=== PATIENT | female | born 1960 | race Caucasian/White ===

== ENCOUNTER 2020-12-15 17:32 | Emergency (ER) | payer OTHER, SELFPAY ==
[2020-12-15 17:43] VITALS: BP 152/74; PULSE 71; RESP 18; TEMP 36.7; O2SAT 96
--- NOTE | 2020-12-15 18:04 | ED.WOUNDLAC ---
HPI - Wound/Laceration General Chief Complaint: Wound/Laceration Stated Complaint: rt thumb cut Time Seen by Provider: 12/15/20 17:57 Source: patient Mode of arrival: Ambulatory Limitations: no limitations History of Present Illness HPI narrative: 60-year-old female nonsmoker with noncontributory medical history presents with a chief complaint of an accidental laceration to her right thumb just prior to arrival while using mechanical pruning cha. She has full range of motion and denies any numbness, tingling or weakness. Her tetanus is up-to-date and she denies any other injury or complaint Onset (ago): minute(s) Place: outdoors Patient tetanus UTD: Yes Context: accidental Associated symptoms: pain Treatments prior to arrival: bandage Related Data Home Medications Medication Instructions Recorded Confirmed IBUPROFEN (Motrin / Advil) 600 mg PO PRN #0 07/10/06 Previous Rx's Medication Instructions Recorded cephalexin 500 mg PO Q6H 7 Days #28 cap 12/15/20 Allergies Allergy/AdvReac Type Severity Reaction Status Date / Time ibuprofen Allergy Verified 12/15/20 17:46 Review of Systems Constitutional Constitutional: Denies chills, Denies fatigue, Denies fever(s), Denies frequent falls, Denies lethargy and Denies weakness Eyes Eyes: Denies change in vision, Denies eye discharge, Denies irritation and Denies loss of vision ENT Ears, Nose, Mouth, and Throat: Denies change in voice, Denies dizziness, Denies neck pain, Denies sore throat and Denies throat swelling Cardiovascular Cardiovascular: Denies chest pain, Denies irregular heart rhythm, Denies lightheadedness, Denies palpitations, Denies dyspnea, Denies dyspnea on exertion and Denies orthopnea Respiratory Respiratory: Denies cough, Denies dyspnea, Denies dyspnea on exertion and Denies wheezing Gastrointestinal Gastrointestinal: Denies abdominal pain, Denies change in bowel habits, Denies diarrhea, Denies nausea and Denies vomiting Musculoskeletal Musculoskeletal: Denies neck pain and Denies numbness Integumentary/Breasts Skin/Breast: Denies pruritus, Denies erythema, Denies rash and Reports wounds Neurologic Neurologic: Denies behavioral changes, Denies confusion, Denies dizziness, Denies frequent falls, Denies loss of vision, Denies numbness and Denies weakness Psychiatric Psychiatric: Denies anxiety, Denies behavioral changes, Denies confusion, Denies depression, Denies homicidal ideation and Denies suicidal ideation Endocrine Endocrine: Denies fatigue, Denies flushing and Denies palpitations Hematologic/Lymphatic Hematologic/Lymphatic: Denies easy bruising Allergic/Immunologic Allergic/Immunologic: Denies urticaria, Denies throat swelling and Denies wheezing Patient History Social History Smoking Status: Current some day smoker Smoking Status: Current some day smoker alcohol intake frequency: 3 or more drinks per day Substance Use Type: marijuana Exam Narrative Exam Narrative: GEN: AOx3 and in mild distress EYES: Pupils are equal, round, and reactive to light and accommodation. Extraoccular muscles are intact bilaterally. There is no subconjunctival hemorrhage or exudate. CHEST: Lungs are clear to auscultation bilaterally and free of wheezes, rales, or rhonchi. Heart rate is regular rhythm, there are no murmurs, clicks, rubs, or gallops. There is no chest wall tenderness. ABD: Abdomen is soft and nontender. There is no guarding or rebound. Bowel sounds are normal in all 4 quadrants. There is no mass or organomegaly. EXT: 1 cm laceration on the dorsal surface of right thumb with minimal active bleeding, there is some particulate removed with cleaning. It is visualized in a bloodless field and no tendon involvement is noted Full painless ROM of all extremities with no loss of sensation or strength. SKIN: Warm, pink, and dry. No erythema or rash Initial Vital Signs Initial Vital Signs: Vital Signs Temperature 98.0 F 12/15/20 17:43 Pulse Rate 71 12/15/20 17:43 Respiratory Rate 18 12/15/20 17:43 Blood Pressure 152/74 H 12/15/20 17:43 Pulse Oximetry 96 12/15/20 17:43 Procedures Laceration Repair Laceration 1: Site: hand Side (If applicable): right Size (cm): 1 Description: linear Depth: simple, single layer Local Anesthetic: lidocaine 1% and with bicarb Amount of anesthesia used (mL): 4 Pre-repair: wound explored, irrigated extensively and deep structures intact Skin layer closed with: nylon Size (cm): 5-0 Number of sutures: 3 Technique: simple, interrupted Course Orders Ordered: Discontinued Medications Lidocaine/Sodium Bicarbonate (Lido 1%/Sod Bicarb 8.4% (10ml) 10 Ml Syringe) 10 ml INJ NOW ONE Stop: 12/15/20 21:16 Last Admin: 12/15/20 21:24 Dose: 10 ml Documented by: VELVET Vital Signs Vital signs: Vital Signs - 8 hr 12/15/20 17:43 Temperature 98.0 F Pulse Rate 71 Respiratory Rate 18 Blood Pressure 152/74 H Pulse Oximetry 96 Discharge Plan Departure Patient Disposition: Home Clinical Impression: Laceration Instructions: DI for Laceration Repair Activity Restrictions/Additional Instructions: Please keep the wound clean and dry to the best of your ability. Please monitor for signs of infection such as redness to the skin or increasing pain. Have the sutures removed by your doctor in about 7 days. If you are unable to get into your doctor, we would be happy to remove the sutures in that same timeframe. Prescriptions: New cephalexin 500 mg capsule 500 mg PO Q6H 7 Days Qty: 28 RF: 0 No Action IBUPROFEN (Motrin / Advil) 600 mg PO PRN Qty: 0 RF: 0 Referrals: Kylie Koo ND [Primary Care Provider] -
[2020-12-15] MEDS: LIDO 1%/SOD BICARB 8.4% (10ML) 10 ML SYRINGE INJ (21:24)
== END 2020-12-15 21:40 | disposition home or self-care (01) ==
PROVIDERS: Emergency Provider Emergency Medicine; PCP Naturopath
DX: S61.011A Laceration without foreign body of right thumb without damage to nail, initial encounter (principal); W26.8XXA Contact with other sharp object(s), not elsewhere classified, initial encounter
CPT/HCPCS: 12001; 99283

== ENCOUNTER → 2020-12-17 10:46 | Outpatient (CLI) | payer OTHER, SELFPAY ==
[2020-12-17] MEDS: COVID-19 VACC #1, MRNA(MOD) 100 MCG/0.5 ML VIAL IM (10:52)
== END ==
PROVIDERS: PCP Naturopath; Visit Provider Internal Medicine
DX: Z23 Encounter for immunization (principal)
CPT/HCPCS: 0011A; 91301

== ENCOUNTER 2020-12-24 14:14 | Emergency (ER) | payer OTHER, SELFPAY ==
[2020-12-24 14:18] VITALS: BP 158/77; PULSE 79; RESP 14; O2SAT 95; BMI 29.9
--- NOTE | 2020-12-24 14:21 | ED.EXTPRO ---
HPI - Extremity Problem General Chief complaint: Recheck/Abnormal Lab/Rx Stated complaint: stitches removal Time Seen by Provider: 12/24/20 14:19 Source: patient Mode of arrival: Ambulatory Limitations: no limitations History of Present Illness HPI Narrative: The patient was seen here about 10 days ago for a right thumb laceration. She lacerated her finger while gardening. She is right-hand dominant. There is no drainage or infection around the site. She has normal range of motion of the right thumb. She has no complaints. Related Data Home Medications Medication Instructions Recorded Confirmed IBUPROFEN (Motrin / Advil) 600 mg PO PRN #0 07/10/06 Allergies Allergy/AdvReac Type Severity Reaction Status Date / Time ibuprofen Allergy Verified 12/24/20 14:17 Review of Systems Constitutional Constitutional: Denies fever(s) Comments: Feeling well. Musculoskeletal Comments: Recent right thumb injury. Integumentary/Breasts Comments: Healing right thumb wound. Neurologic Comments: No motor sensory deficit in the right hand. Patient History Medical History (Updated 12/24/20 @ 14:24 by Diego Ramirez MD) No significant past medical history Social History Smoking Status: Current some day smoker Smoking Status: Current some day smoker alcohol intake frequency: 3 or more drinks per day Substance Use Type: marijuana Exam Initial Vital Signs Initial Vital Signs: Vital Signs Pulse Rate 79 12/24/20 14:18 Respiratory Rate 14 12/24/20 14:18 Blood Pressure 158/77 H 12/24/20 14:18 Pulse Oximetry 95 12/24/20 14:18 Const General: cooperative, well developed, well groomed and No acute distress Skin Other: Well-healed right thumb laceration. Therefore nylon sutures in place. There is no evidence of infection. Neuro General: patient alert and patient oriented x3 Other: Motor and sensory exam of the right hand are normal. Extrem General: full ROM, no clubbing, cyanosis or edema, no pedal edema and no calf tenderness Other: Normal range of motion in the right digits. Course Course Course Narrative: The sutures removed from the right thumb by 1 of the ER nurses. A bacitracin bandage was placed. Vital Signs Vital signs: Vital Signs - 8 hr 12/24/20 14:18 Pulse Rate 79 Respiratory Rate 14 Blood Pressure 158/77 H Pulse Oximetry 95 Discharge Plan Departure Patient Disposition: Home Clinical Impression: Encounter for removal of sutures Activity Restrictions/Additional Instructions: You may take the bandages off tonight. You have no limitations. Return here as needed. (the patient was given verbal discharge instructions.) Prescriptions: No Action IBUPROFEN (Motrin / Advil) 600 mg PO PRN Qty: 0 RF: 0 Referrals: Kylie Koo ND [Primary Care Provider] -
== END 2020-12-24 14:27 | disposition home or self-care (01) ==
PROVIDERS: Emergency Provider Emergency Medicine; PCP Naturopath
DX: Z48.02 Encounter for removal of sutures (principal)
CPT/HCPCS: 99281

== ENCOUNTER → 2021-01-14 10:23 | Outpatient (CLI) | payer OTHER, SELFPAY ==
[2021-01-14] MEDS: COVID-19 VACC #2, MRNA(MOD) 100 MCG/0.5 ML VIAL IM (10:30)
== END ==
PROVIDERS: PCP Naturopath; Visit Provider Internal Medicine
DX: Z23 Encounter for immunization (principal)
CPT/HCPCS: 0012A; 91301

== ENCOUNTER → 2021-05-17 13:26 | Outpatient (CLI) | payer OTHER, SELFPAY ==
[2021-05-17 14:03] LABS: Add Manual Diff / Slide Review NO; Basophils Absolute Auto 100 /uL (0-100); Basophils Percent Auto 0.5 % (0-2); Eosinophils Absolute Auto 0 /uL (0-450); Hematocrit 36.1 % (36-46); Hemoglobin 12.2 g/dL (12.0-16.0); Lymphocytes Absolute Auto 1200 /uL (1100-4500); Lymphocytes Percent Auto 6.8 % (25-40); Mean Corpuscular HGB Conc 33.9 % (30-36); Mean Corpuscular Hemoglobin 39.8 PG (26-34); Mean Corpuscular Volume 117.4 fL (80-100); Monocytes Absolute Auto 1700 /uL (0-900); Neutrophils Absolute Auto 14300 /uL (1500-7000); Neutrophils Percent Auto 82.7 % (50-75); Platelet Count 211 X10^3/uL (150-400); Red Blood Cell Count 3.08 X10^6/uL (4.0-5.2); White Blood Cell Count 17.3 X10^3/uL (4.5-11.0)
[2021-05-17 14:11] LABS: Alanine Aminotransferase 33 IU/L (<35); Albumin 3.5 g/dL (3.5-5.0); Albumin Globulin Ratio 0.9 (1.0-2.8); Alkaline Phosphatase 243 U/L (38-126); Amylase 40 U/L (30-110); Aspartate Aminotransferase 244 IU/L (14-36); BUN Creatinine Ratio 16.9 (6-22); Bilirubin Total 10.4 mg/dL (0.2-1.3); Blood Urea Nitrogen 12 mg/dL (7-17); Calcium 8.6 mg/dL (8.4-10.2); Carbon Dioxide 27 mmol/L (22-32); Chloride 97 mmol/L (98-107); Estimated Glomerular Filt Rate > 60.0 mL/min (>60); Glucose 84 mg/dL (80-110); HEMOLYSIS < 15 (0-50); Lipase 12 U/L (23-300); Potassium 4.6 mmol/L (3.4-5.1); Sodium 132 mmol/L (137-145); Total Protein 7.5 g/dL (6.3-8.2)
[2021-05-17 14:23] LABS: Macrocytosis 3+
== END ==
PROVIDERS: PCP Internal Medicine; Referring Provider Physician Assistant; Visit Provider Physician Assistant
DX: R10.9 Unspecified abdominal pain (principal)
CPT/HCPCS: 36415; 80053; 82150; 83690; 85025

== ENCOUNTER 2021-05-17 15:55 | Inpatient (IN) | payer OTHER, SELFPAY ==
[2021-05-17] VITALS (14 sets, daily range): BP systolic 95–113; BP diastolic 52–58; PULSE 86–93; RESP 16; TEMP 37.2; O2SAT 91–98; BMI 28.3
[2021-05-17 16:53] LABS: Add Manual Diff / Slide Review NO; Basophils Absolute Auto 100 /uL (0-100); Basophils Percent Auto 0.5 % (0-2); Eosinophils Absolute Auto 0 /uL (0-450); Eosinophils Percent Auto 0.1 % (2-4); Hematocrit 35.9 % (36-46); Hemoglobin 12.2 g/dL (12.0-16.0); Lymphocytes Absolute Auto 1400 /uL (1100-4500); Lymphocytes Percent Auto 8.2 % (25-40); Mean Corpuscular HGB Conc 34.1 % (30-36); Mean Corpuscular Hemoglobin 39.9 PG (26-34); Mean Corpuscular Volume 117.1 fL (80-100); Monocytes Absolute Auto 1700 /uL (0-900); Monocytes Percent Auto 9.8 % (3-14); Neutrophils Absolute Auto 14000 /uL (1500-7000); Neutrophils Percent Auto 81.4 % (50-75); Platelet Count 223 X10^3/uL (150-400); Red Blood Cell Count 3.07 X10^6/uL (4.0-5.2); Red Cell Distribution Width 15.1 % (11.6-14.8); White Blood Cell Count 17.1 X10^3/uL (4.5-11.0)
[2021-05-17 17:06] LABS: Alanine Aminotransferase 33 IU/L (<35); Albumin 3.6 g/dL (3.5-5.0); Albumin Globulin Ratio 0.9 (1.0-2.8); Alkaline Phosphatase 248 U/L (38-126); Aspartate Aminotransferase 240 IU/L (14-36); BUN Creatinine Ratio 17.6 (6-22); Blood Urea Nitrogen 13 mg/dL (7-17); Calcium 8.5 mg/dL (8.4-10.2); Carbon Dioxide 26 mmol/L (22-32); Chloride 95 mmol/L (98-107); Estimated Glomerular Filt Rate > 60.0 mL/min (>60); Glucose 83 mg/dL (80-110); HEMOLYSIS < 15 (0-50); Lipase 14 U/L (23-300); Potassium 4.1 mmol/L (3.4-5.1); Sodium 132 mmol/L (137-145); Total Protein 7.6 g/dL (6.3-8.2)
--- NOTE | 2021-05-17 17:26 | DI.US.S_ITS ---
PROCEDURE: US ABDOMEN LIMITED INDICATIONS: RUQ, DIFFUSE PAIN TECHNIQUE: Real-time focused scanning was performed of the abdomen, with image documentation. Color and pulse Doppler interrogation was also performed on the area of interest. COMPARISON: None. FINDINGS: Dense coarse hepatic echotexture significantly limits assessment. Overall size is within normal limits without focal mass lesion visualized. The portal vein shows appropriate vascularity. Gallbladder shows wall thickening measuring up to 7 mm with pericholecystic fluid. No shadowing calculi. Intrahepatic and common bile ducts are not well visualized. Common bile duct possibly measures 3.1 mm. Nonvisualized pancreas IMPRESSION: 1. Limited exam. 2. Dense echogenic liver either reflects advanced hepatic fatty infiltration or cirrhosis. 3. Gallbladder wall thickening, pericholecystic fluid without cholelithiasis. Differential possibilities include acalculous cholecystitis, hepatitis, hypoalbuminemia, ascites. Consider follow-up diagnostic imaging such as contrast CT or HIDA scan. Approved by: Jacky Srivastava M.D. on 05/17/2021 at 17:40
[2021-05-17] MEDS: ONDANSETRON 4 MG/2 ML INJ IV ×2 (17:37→23:53)
[2021-05-17] MEDS: SODIUM CHLORIDE 0.9% 1,000 ML 1000 ML IV ×2 (17:37→22:52)
[2021-05-17] MEDS: MORPHINE 2 MG/ML INJ 4 MG IV (17:37)
[2021-05-17 17:39] LABS: Macrocytosis 2+
[2021-05-17 17:41] LABS: Ictotest Urine Positive (Negative); RBC Urine 1-5/HPF (0-5/HPF); Squamous Epithelial Cell Urine 1-5 /HPF (0-5/HPF); WBC Urine 5-10/HPF (0-5/HPF)
[2021-05-17 17:42] LABS: Amorphous Sediment Urine 2+; Bacteria Urine Many (>30)
--- NOTE | 2021-05-17 18:17 | DI.MRI.S_ITS ---
PROCEDURE: MR ABDOMEN WO CON INDICATIONS: CBD stone, choledocholithiasis TECHNIQUE: Coronal HASTE through the abdomen, axial 2-D FLASH in- and [id number], and breath-hold T2 FSE with fat saturation through the biliary system and pancreas. Oblique coronal and axial thin-slice HASTE, radial thick-slab HASTE centered on the extrahepatic bile ducts. Intravenous secretin: Not requested. COMPARISON: [facility], , US ABDOMEN LIMITED, 05/17/2021, 16:53. FINDINGS: Image quality: Excellent. Pancreas and biliary system: Intrahepatic and extrahepatic biliary ducts are normal in caliber. Normal T2 fluid signal in the common hepatic duct, cystic duct, and common bile duct, with no intraluminal filling defect to indicate choledocholithiasis. There is a small gallstone within the gallbladder near the anterior free edge (series 6, image 12), measuring 3 millimeters. No gallbladder wall thickening. Small volume pericholecystic fluid is likely related to suspected liver disease. No pancreatic ductal dilatation. No peripancreatic fat stranding or pathologic peripancreatic fluid. Other solid organs: Severe hepatic steatosis. Heterogeneous hepatic signal intensity with small volume perihepatic and perisplenic ascites. Splenomegaly noted. No findings of hydronephrosis. Adrenal glands within normal limits. Nodes and vessels: Nonaneurysmal abdominal aorta. IVC grossly unremarkable. Bowel and peritoneum: No findings of bowel obstruction. Lung bases: Partially visualized pleural effusions, size unknown. Bone marrow: Normal marrow signal intensity. IMPRESSION: No findings of choledocholithiasis or biliary ductal dilatation. Tiny gallstone with no findings of cholecystitis. Severe hepatic steatosis with suspected diffuse hepatocellular disease. Cirrhosis is not excluded. There is splenomegaly along with perihepatic and perisplenic ascites, along with small pleural effusions. Dictated by: Zeeshan Watkins M.D. on 05/17/2021 at 18:55 Approved by: Zeeshan Watkins M.D. on 05/17/2021 at 19:01
--- NOTE | 2021-05-17 19:20 | ED_ITS ---
HPI - Abdominal Pain <Corinne Metcalf PA-C - Last Filed: 05/17/21 20:46> General Chief Complaint: Abdominal Pain Stated Complaint: ABD PAIN Time Seen by Provider: 05/17/21 15:57 Source: patient and family Mode of arrival: Family Vehicle Limitations: no limitations History of Present Illness HPI narrative: 60-year-old female no reported past medical history presents to the ED with 2 days of diffuse abdominal pain. Patient's symptoms started yesterday and has abdominal pain that woke her from her sleep, along with nausea. Patient endorses a subjective fever, chills. Patient denies chest p ain, shortness of breath, vomiting, dysuria, hematochezia, melena, lightheadedness, syncope, dizziness. Patient endorses hematuria. Patient endorses moderate to heavy daily alcohol use for several years. Denies having been diagnosed with cirrhosis, states she has not been to a doctor in a long ti me. Denies history of gallstones. Related Data Home Medications Medication Instructions Recorded Confirmed No Known Home Medications 05/17/21 05/17/21 Allergies Allergy/AdvReac Type Severity Reaction Status Date / Time ibuprofen Allergy Verified 05/17/21 21:33 acetaminophen [From Percocet] AdvReac Verified 05/17/21 21:33 oxycodone [From Percocet] AdvReac Verified 05/17/21 21:33 Review of Systems <Corinne Metcalf PA-C - Last Filed: 05/17/21 20:46> Constitutional Constitutional: Reports chills, Denies fatigue, Reports fever(s), Denies frequent falls, Denies lethargy and Denies weakness Eyes Eyes: Denies change in vision, Denies eye discharge, Denies irritation and Denies loss of vision ENT Ears, Nose, Mouth, and Throat: Denies change in voice, Denies dizziness, Denies neck pain, Denies sore throat and Denies throat swelling Cardiovascular Cardiovascular: Denies chest pain, Denies irregular heart rhythm, Denies lightheadedness, Denies palpitations, Denies dyspnea, Denies dyspnea on exertion and Denies orthopnea Respiratory Respiratory: Denies cough, Denies dyspnea, Denies dyspnea on exertion and Denies wheezing Gastrointestinal Gastrointestinal: Reports as per HPI, Reports abdominal pain, Denies change in bowel habits, Denies diarrhea, Reports nausea and Denies vomiting Musculoskeletal Musculoskeletal: Denies neck pain and Denies numbness Integumentary/Breasts Skin/Breast: Denies pruritus, Denies erythema, Denies rash and Denies wounds Neurologic Neurologic: Denies behavioral changes, Denies confusion, Denies dizziness, Denies frequent falls, Denies loss of vision, Denies numbness and Denies weakness Psychiatric Psychiatric: Denies anxiety, Denies behavioral changes, Denies confusion, Denies depression, Denies homicidal ideation and Denies suicidal ideation Endocrine Endocrine: Denies fatigue, Denies flushing and Denies palpitations Hematologic/Lymphatic Hematologic/Lymphatic: Denies easy bruising Allergic/Immunologic Allergic/Immunologic: Denies urticaria, Denies throat swelling and Denies wheezing Patient History <Corinne Metcalf PA-C - Last Filed: 05/17/21 20:46> Medical History No significant past medical history Social History Smoking Status: Current some day smoker Smoking Status: Current some day smoker alcohol intake frequency: 3 or more drinks per day Substance Use Type: marijuana Exam <Corinne Metcalf PA-C - Last Filed: 05/17/21 20:46> Initial Vital Signs Initial Vital Signs: Vital Signs Temperature 99 F 05/17/21 16:59 Pulse Rate 90 05/17/21 16:59 Respiratory Rate 16 05/17/21 16:59 Blood Pressure 103/56 L 05/17/21 16:59 Pulse Oximetry 98 05/17/21 16:59 Const General: cooperative HENMT Head: normocephalic and atraumatic Ears: external ears normal and TM's normal bilaterally Nose: external nose normal and No nasal discharge Face and sinus: sinuses nontender, face symmetric, no sinus tenderness and No dry mucous membranes Mouth: oral mucosae normal and moist mucous membranes Teeth and gingiva: dentition normal Throat: tonsils normal and uvula midline Eyes General: appearance normal, both eyes and all related structures Eyelids: eyelids normal Conjunctivae: conjunctivae normal Sclera: sclerae normal Pupils: PERRL EOM: EOM intact bilaterally Neck Neck: normal visual inspection, trachea midline, No lymphadenopathy, No midline deformity and No JVD Lymphatic: No lymphedema Chest Chest: normal inspection of the chest Resp Effort & Inspection: normal respiratory effort, able to speak in complete sentences, no respiratory distress and no use of accessory muscles Auscultation: clear to auscultation bilaterally, no rales, no rhonchi and no wheezes Cardio Rate: regular rate Rhythm: regular rhythm Heart Sounds: no click, no gallops, no murmurs and no rubs Pulses: normal peripheral pulses GI Inspection: distended Palpation: soft, No guarding, No pulsatile mass and No tender Auscultation: normal bowel sounds Other: Abdomen tender to palpation in the epigastric and right upper quadrant regions. No CVA tenderness. No rebound, guarding. Mildly distended, soft abdomen General: No CVA tenderness Back/Spine/Pelvis Back: No CVA tenderness Cervical Spine: cervical ROM normal and No pain with cervical ROM Thoracic/Lumbar Spine: thoracic and lumbar spine normal to inspection Skin General: no rashes or lesions noted, No jaundice and No petechiae Neuro General: patient alert, patient oriented x3, gait normal and no focal motor deficits Speech: speech normal Extrem General: full ROM, no clubbing, cyanosis or edema, no pedal edema and no calf tenderness Psych Appearance: well kempt Mental Status: mental status grossly normal Attitude: cooperative Thought Content: normal and suicidality Judgment: judgment good <Safia Cervantes MD - Last Filed: 05/18/21 03:24> Initial Vital Signs Initial Vital Signs: Vital Signs Temperature 99 F 05/17/21 16:59 Pulse Rate 90 05/17/21 16:59 Respiratory Rate 16 05/17/21 16:59 Blood Pressure 103/56 L 05/17/21 16:59 Pulse Oximetry 98 05/17/21 16:59 Course <Corinne Metcalf PA-C - Last Filed: 05/17/21 20:46> Course Course Narrative: Patient's symptoms improved with morphine, Zofran, IV fluids. Ultrasound negative for choledocholithiasis. MRCP negative for choledocholithiasis, pancreatic cancer, cholecystitis. Will order CT AP. Likely admit for observation for serial abdominal exams. Orders Ordered: ED Orders 05/17/21 19:32 CT abdomen pelvis w con Stat 05/17/21 20:15 COVID19 - ADMIT ([facility] [employer] swab/PCR) Stat 05/17/21 21:15 Blood Culture Stat Enoxaparin Sodium (Enoxaparin 40 Mg/0.4 Ml Syringe) 40 mg SUBCUT DAILY PETER Hydromorphone HCl (Hydromorphone 0.5 Mg Inj) 0.5 mg IV Q15MIN PRN PRN Reason: Pain, Last Admin: 05/17/21 23:53 Dose: 0.5 mg Documented by: HANG Sodium Chloride (Normal Saline 0.9%) 1,000 mls @ 150 mls/hr IV CONT PETER Last Admin: 05/18/21 00:10 Dose: 150 mls/hr Documented by: HANG Piperacillin Sod/Tazobactam (Sod 3.375 gm/ Sodium Chloride) 100 mls @ 25 mls/hr IV Q8H [facility] Naloxone HCl (Naloxone 0.4 Mg/Ml Vial) 0.2 mg IV Q2MIN PRN PRN Reason: Opiate Reversal Ondansetron HCl (Ondansetron 4 Mg/2 Ml Inj) 4 mg IV Q8HR PRN PRN Reason: Nausea And Vomiting Discontinued Medications Sodium Chloride (Normal Saline 0.9%) 1,000 mls @ 1,000 mls/hr IV BOLUS ONE Stop: 05/17/21 18:26 Last Infusion: 05/17/21 20:31 Dose: 0 mls/hr Documented by: Admin: 05/17/21 17:37 Dose: 1,000 mls/hr Documented by: MAURI Sodium Chloride (Normal Saline 0.9%) 1,000 mls @ 2,000 mls/hr IV BOLUS ONE Stop: 05/17/21 21:27 Last Infusion: 05/17/21 22:51 Dose: 0 mls/hr Documented by: Infusion: 05/17/21 22:12 Dose: 1,000 mls/hr Documented by: Infusion: 05/17/21 21:32 Dose: 300 mls/hr Documented by: Admin: 05/17/21 21:32 Dose: 2,000 mls/hr Documented by: HANG Piperacillin Sod/Tazobactam (Sod 4.5 gm/ Sodium Chloride) 100 mls @ 200 mls/hr IV NOW ONE Stop: 05/17/21 20:59 Last Infusion: 05/17/21 22:12 Dose: 0 mls/hr Documented by: Admin: 05/17/21 21:31 Dose: 200 mls/hr Documented by: HANG Sodium Chloride (Normal Saline 0.9%) 1,000 mls @ 1,000 mls/hr IV BOLUS ONE Stop: 05/17/21 22:43 Last Infusion: 05/18/21 00:09 Dose: 0 mls/hr Documented by: Admin: 05/17/21 22:52 Dose: 1,000 mls/hr Documented by: HANG Morphine Sulfate (Morphine 2 Mg/Ml Inj) 4 mg IV NOW ONE Stop: 05/17/21 17:28 Last Admin: 05/17/21 17:37 Dose: 4 mg Documented by: MAURI Ondansetron HCl (Ondansetron 4 Mg/2 Ml Inj) 4 mg IV NOW ONE Stop: 05/17/21 17:28 Last Admin: 05/17/21 17:37 Dose: 4 mg Documented by: MAURI Ondansetron HCl (Ondansetron 4 Mg/2 Ml Inj) 4 mg IV NOW ONE Stop: 05/17/21 23:44 Last Admin: 05/17/21 23:53 Dose: 4 mg Documented by: HANG Vital Signs Vital signs: Vital Signs - 8 hr 05/17/21 19:30 05/17/21 20:11 05/17/21 20:12 Pulse Rate 86 88 Blood Pressure 98/57 L 109/58 L Pulse Oximetry 93 94 94 05/17/21 20:30 05/17/21 21:00 Pulse Rate 88 86 Blood Pressure 105/54 L 104/56 L Pulse Oximetry 91 92 <Safia Cervantes MD - Last Filed: 05/18/21 03:24> Orders Ordered: ED Orders 05/17/21 19:32 CT abdomen pelvis w con Stat 05/17/21 20:15 COVID19 - ADMIT ([employer] swab/PCR) Stat 05/17/21 21:15 Blood Culture Stat Enoxaparin Sodium (Enoxaparin 40 Mg/0.4 Ml Syringe) 40 mg SUBCUT DAILY PETER Hydromorphone HCl (Hydromorphone 0.5 Mg Inj) 0.5 mg IV Q15MIN PRN PRN Reason: Pain, Last Admin: 05/17/21 23:53 Dose: 0.5 mg Documented by: HANG Sodium Chloride (Normal Saline 0.9%) 1,000 mls @ 150 mls/hr IV CONT PETER Last Admin: 05/18/21 00:10 Dose: 150 mls/hr Documented by: HANG Piperacillin Sod/Tazobactam (Sod 3.375 gm/ Sodium Chloride) 100 mls @ 25 mls/hr IV Q8H PETER Naloxone HCl (Naloxone 0.4 Mg/Ml Vial) 0.2 mg IV Q2MIN PRN PRN Reason: Opiate Reversal Ondansetron HCl (Ondansetron 4 Mg/2 Ml Inj) 4 mg IV Q8HR PRN PRN Reason: Nausea And Vomiting Discontinued Medications Sodium Chloride (Normal Saline 0.9%) 1,000 mls @ 1,000 mls/hr IV BOLUS ONE Stop: 05/17/21 18:26 Last Infusion: 05/17/21 20:31 Dose: 0 mls/hr Documented by: Admin: 05/17/21 17:37 Dose: 1,000 mls/hr Documented by: MAURI Sodium Chloride (Normal Saline 0.9%) 1,000 mls @ 2,000 mls/hr IV BOLUS ONE Stop: 05/17/21 21:27 Last Infusion: 05/17/21 22:51 Dose: 0 mls/hr Documented by: Infusion: 05/17/21 22:12 Dose: 1,000 mls/hr Documented by: Infusion: 05/17/21 21:32 Dose: 300 mls/hr Documented by: Admin: 05/17/21 21:32 Dose: 2,000 mls/hr Documented by: HANG Piperacillin Sod/Tazobactam (Sod 4.5 gm/ Sodium Chloride) 100 mls @ 200 mls/hr IV NOW ONE Stop: 05/17/21 20:59 Last Infusion: 05/17/21 22:12 Dose: 0 mls/hr Documented by: Admin: 05/17/21 21:31 Dose: 200 mls/hr Documented by: HANG Sodium Chloride (Normal Saline 0.9%) 1,000 mls @ 1,000 mls/hr IV BOLUS ONE Stop: 05/17/21 22:43 Last Infusion: 05/18/21 00:09 Dose: 0 mls/hr Documented by: Admin: 05/17/21 22:52 Dose: 1,000 mls/hr Documented by: HANG Morphine Sulfate (Morphine 2 Mg/Ml Inj) 4 mg IV NOW ONE Stop: 05/17/21 17:28 Last Admin: 05/17/21 17:37 Dose: 4 mg Documented by: MAURI Ondansetron HCl (Ondansetron 4 Mg/2 Ml Inj) 4 mg IV NOW ONE Stop: 05/17/21 17:28 Last Admin: 05/17/21 17:37 Dose: 4 mg Documented by: MAURI Ondansetron HCl (Ondansetron 4 Mg/2 Ml Inj) 4 mg IV NOW ONE Stop: 05/17/21 23:44 Last Admin: 05/17/21 23:53 Dose: 4 mg Documented by: HANG Vital Signs Vital signs: Vital Signs - 8 hr 05/17/21 19:30 05/17/21 20:11 05/17/21 20:12 Pulse Rate 86 88 Blood Pressure 98/57 L 109/58 L Pulse Oximetry 93 94 94 05/17/21 20:30 05/17/21 21:00 Pulse Rate 88 86 Blood Pressure 105/54 L 104/56 L Pulse Oximetry 91 92 MDM - Abdominal Pain <Corinne Metcalf PA-C - Last Filed: 05/17/21 20:46> Medical Records Attestation: I reviewed the patient's medical records. Lab Data Attestation: I reviewed the patient's lab results. Lab results narrative: Labs show cholestatic pattern with elevated bilirubin, elevated AST, elevated alkaline phosphatase. WBCs elevated to 17. Result diagrams: 05/17/21 16:41 05/17/21 16:41 Labs: Lab Results 05/17/21 05/17/21 05/17/21 Range/Units 16:30 16:30 16:41 WBC 17.1 H (4.5-11.0) X10^3/uL RBC 3.07 L (4.0-5.2) X10^6/uL Hgb 12.2 (12.0-16.0) g/dL Hct 35.9 L (36-46) % MCV 117.1 H (80-100) fL MCH 39.9 H (26-34) PG MCHC 34.1 (30-36) % RDW 15.1 H (11.6-14.8) % Plt Count 223 (150-400) X10^3/uL Neut % (Auto) 81.4 H (50-75) % Lymph % (Auto) 8.2 L (25-40) % Vigo % (Auto) 9.8 (3-14) % Eos % (Auto) 0.1 L (2-4) % Baso % (Auto) 0.5 (0-2) % Neut # (Auto) 36296 H (6017-9553) /uL Lymph # (Auto) 1400 (5772-4760) /uL Vigo # (Auto) 1700 H (0-900) /uL Eos # (Auto) 0 (0-450) /uL Baso # (Auto) 100 (0-100) /uL RBC Morphology See below Macrocytosis 2+ H PT (10.1-12.7) SECONDS INR (0.9-1.3) APTT (26.4-36.2) SECONDS Sodium (137-145) mmol/L Potassium (3.4-5.1) mmol/L Chloride (98-107) mmol/L Carbon Dioxide (22-32) mmol/L BUN (7-17) mg/dL Creatinine (0.52-1.04) mg/dL Estimated GFR (>60) mL/min BUN/Creatinine Ratio (6-22) Glucose (80-110) mg/dL Lactate (0.7-2.1) mmol/L Calcium (8.4-10.2) mg/dL Magnesium (1.6-2.3) mg/dL Total Bilirubin (0.2-1.3) mg/dL GGT (12-43) U/L AST (14-36) IU/L ALT (<35) IU/L Alkaline Phosphatase (38-126) U/L Total Protein (6.3-8.2) g/dL Albumin (3.5-5.0) g/dL Globulin (1.7-4.1) g/dL Albumin/Globulin Ratio (1.0-2.8) Lipase (23-300) U/L Procalcitonin (<0.5) ng/mL Ur Bilirubin Confirm Positive H (Negative) Urine RBC 1-5/hpf (0-5/HPF) Urine WBC 5-10/hpf H (0-5/HPF) Ur Squamous Epith Cells 1-5 /hpf (0-5/HPF) Amorphous Sediment 2+ Urine Bacteria Many (>30) H (None) Ur Culture Indicated? Culture not indicate Acetaminophen (10-30) ug/mL SARS-CoV-2 (PCR) (Negative) 05/17/21 05/17/21 05/17/21 Range/Units 16:41 16:41 16:41 WBC (4.5-11.0) X10^3/uL RBC (4.0-5.2) X10^6/uL Hgb (12.0-16.0) g/dL Hct (36-46) % MCV (80-100) fL MCH (26-34) PG MCHC (30-36) % RDW (11.6-14.8) % Plt Count (150-400) X10^3/uL Neut % (Auto) (50-75) % Lymph % (Auto) (25-40) % Vigo % (Auto) (3-14) % Eos % (Auto) (2-4) % Baso % (Auto) (0-2) % Neut # (Auto) (2179-3481) /uL Lymph # (Auto) (0371-4936) /uL Vigo # (Auto) (0-900) /uL Eos # (Auto) (0-450) /uL Baso # (Auto) (0-100) /uL RBC Morphology Macrocytosis PT (10.1-12.7) SECONDS INR (0.9-1.3) APTT (26.4-36.2) SECONDS Sodium 132 L (137-145) mmol/L Potassium 4.1 (3.4-5.1) mmol/L Chloride 95 L (98-107) mmol/L Carbon Dioxide 26 (22-32) mmol/L BUN 13 (7-17) mg/dL Creatinine 0.74 (0.52-1.04) mg/dL Estimated GFR > 60.0 (>60) mL/min BUN/Creatinine Ratio 17.6 (6-22) Glucose 83 (80-110) mg/dL Lactate 4.2 H* (0.7-2.1) mmol/L Calcium 8.5 (8.4-10.2) mg/dL Magnesium (1.6-2.3) mg/dL Total Bilirubin 11.0 H (0.2-1.3) mg/dL GGT (12-43) U/L AST 240 H (14-36) IU/L ALT 33 (<35) IU/L Alkaline Phosphatase 248 H (38-126) U/L Total Protein 7.6 (6.3-8.2) g/dL Albumin 3.6 (3.5-5.0) g/dL Globulin 4.0 (1.7-4.1) g/dL Albumin/Globulin Ratio 0.9 L (1.0-2.8) Lipase 14 L (23-300) U/L Procalcitonin 5.91 H (<0.5) ng/mL Ur Bilirubin Confirm (Negative) Urine RBC (0-5/HPF) Urine WBC (0-5/HPF) Ur Squamous Epith Cells (0-5/HPF) Amorphous Sediment Urine Bacteria (None) Ur Culture Indicated? Acetaminophen (10-30) ug/mL SARS-CoV-2 (PCR) (Negative) 05/17/21 05/17/21 05/17/21 Range/Units 16:41 16:41 20:15 WBC (4.5-11.0) X10^3/uL RBC (4.0-5.2) X10^6/uL Hgb (12.0-16.0) g/dL Hct (36-46) % MCV (80-100) fL MCH (26-34) PG MCHC (30-36) % RDW (11.6-14.8) % Plt Count (150-400) X10^3/uL Neut % (Auto) (50-75) % Lymph % (Auto) (25-40) % Vigo % (Auto) (3-14) % Eos % (Auto) (2-4) % Baso % (Auto) (0-2) % Neut # (Auto) (6151-3191) /uL Lymph # (Auto) (1186-8187) /uL Vigo # (Auto) (0-900) /uL Eos # (Auto) (0-450) /uL Baso # (Auto) (0-100) /uL RBC Morphology Macrocytosis PT 19.7 H (10.1-12.7) SECONDS INR 1.7 H (0.9-1.3) APTT 42 H (26.4-36.2) SECONDS Sodium (137-145) mmol/L Potassium (3.4-5.1) mmol/L Chloride (98-107) mmol/L Carbon Dioxide (22-32) mmol/L BUN (7-17) mg/dL Creatinine (0.52-1.04) mg/dL Estimated GFR (>60) mL/min BUN/Creatinine Ratio (6-22) Glucose (80-110) mg/dL Lactate (0.7-2.1) mmol/L Calcium (8.4-10.2) mg/dL Magnesium 1.1 L (1.6-2.3) mg/dL Total Bilirubin (0.2-1.3) mg/dL GGT 674 H (12-43) U/L AST (14-36) IU/L ALT (<35) IU/L Alkaline Phosphatase (38-126) U/L Total Protein (6.3-8.2) g/dL Albumin (3.5-5.0) g/dL Globulin (1.7-4.1) g/dL Albumin/Globulin Ratio (1.0-2.8) Lipase (23-300) U/L Procalcitonin (<0.5) ng/mL Ur Bilirubin Confirm (Negative) Urine RBC (0-5/HPF) Urine WBC (0-5/HPF) Ur Squamous Epith Cells (0-5/HPF) Amorphous Sediment Urine Bacteria (None) Ur Culture Indicated? Acetaminophen < 10 L (10-30) ug/mL SARS-CoV-2 (PCR) Negative (Negative) Point of care testing: Urine Dip Bedside Urine Glucose Negative Bedside Urine Bilirubin ++ 2 Bedside Urine Ketone +/- 5 Urine Specific [place] 1.03 Bedside Urine Occult Blood +/- Bedside Urine pH 6 Bedside Urine Protein + 30 Bedside Urine Urobilinogen 1+ 2mg Bedside Urine Nitrite + Positive Bedside Urine Leukocytes + 70 Esterase Imaging Data US - abdomen: Radiologist's Impression: PROCEDURE: US ABDOMEN LIMITED INDICATIONS: RUQ, DIFFUSE PAIN TECHNIQUE: Real-time focused scanning was performed of the abdomen, with image documenta tion. Color and pulse Doppler interrogation was also performed on the area of interest. COMPARISON: None. FINDINGS: Dense coarse hepatic echotexture significantly limits assessment. Overall size is within normal limits without focal mass lesion visualized. The portal vein shows appropriate vascularity. Gallbladder shows wall thickening measuring up to 7 mm with pericholecystic fluid. No shadowing calculi. Intrahepatic and common bile ducts are not well visualized. Common bile duct possibly measures 3.1 mm. Nonvisualized pancreas IMPRESSION: 1. Limited exam. 2. Dense echogenic liver either reflects advanced hepatic fatty infiltration or cirrhosis. 3. Gallbladder wall thickening, pericholecystic fluid without cholelithiasis. Differential possibilities include acalculous cholecystitis, hepatitis, hypoalbuminemia, ascites. Consider follow-up diagnostic imaging such as contrast CT or HIDA scan. Approved by: Jacky Srivastava M.D. on 05/17/2021 at 17:40 MRCP: Radiologist's Impression: PROCEDURE: MR ABDOMEN WO CON INDICATIONS: CBD stone, choledocholithiasis TECHNIQUE: Coronal HASTE through the abdomen, axial 2-D FLASH in- and [id number], and breath-hold T2 FSE with fat saturation through the biliary system and pancreas. Oblique coronal and axial thin-slice HASTE, radial thick-slab HASTE centered on the extrahepatic bile ducts. Intravenous secretin: Not requested. COMPARISON: [facility], , US ABDOMEN LIMITED, 05/17/2021, 16:53. FINDINGS: Image quality: Excellent. Pancreas and biliary system: Intrahepatic and extrahepatic biliary ducts are normal in caliber. Normal T2 fluid signal in the common hepatic duct, cystic duct, and common bile duct, with no intraluminal filling defect to indicate choledocholithiasis. There is a small gallstone within the gallbladder near the anterior free edge (series 6, image 12), measuring 3 millimeters. No gallbladder wall thickening. Small volume pericholecystic fluid is likely related to suspected liver disease. No pancreatic ductal dilatation. No peripancreatic fat stranding or pathologic peripancreatic fluid. Other solid organs: Severe hepatic steatosis. Heterogeneous hepatic signal intensity with small volume perihepatic and perisplenic ascites. Splenomegaly noted. No findings of hydronephrosis. Adrenal glands within normal limits. Nodes and vessels: Nonaneurysmal abdominal aorta. IVC grossly unremarkable. Bowel and peritoneum: No findings of bowel obstruction. Lung bases: Partially visualized pleural effusions, size unknown. Bone marrow: Normal marrow signal intensity. IMPRESSION: No findings of choledocholithiasis or biliary ductal dilatation. Tiny gallstone with no findings of cholecystitis. Severe hepatic steatosis with suspected diffuse hepatocellular disease. Cirrhosis is not excluded. There is splenomegaly along with perihepatic and perisplenic ascites, along with small pleural effusions. Dictated by: Zeeshan Watkins M.D. on 05/17/2021 at 18:55 Approved by: Zeeshan Watkins M.D. on 05/17/2021 at 19:01 CT scan - abdomen/pelvis: Radiologist's Impression: PROCEDURE: CT ABDOMEN PELVIS W CON INDICATIONS: Abdominal pain TECHNIQUE: After the administration of intravenous contrast, axial sections acquired from the lung bases to the pubic symphysis. Coronal and sagittal reformats were performed. For radiation dose reduction, the following was used: automated exposure control, adjustment of mA and/or kV according to patient size. COMPARISON: None. FINDINGS: Image quality: Excellent. Lung bases: Unremarkable. Heart: No significant findings. ABDOMEN: Liver: Severe hepatic steatosis. Mottled attenuation of the liver, nonspecific but suggestive of diffuse hepatocellular disorder. Perihepatic ascites. Gallbladder: Fluid adjacent to the gallbladder is presumably related to diffuse liver disease. No gallbladder wall thickening. Biliary ducts: No intrahepatic or extrahepatic biliary ductal dilatation. Pancreas: No peripancreatic inflammatory changes or pancreatic ductal dilatation. Spleen: Enlarged spleen measuring up to 14 centimeters in greatest dimension. Mild perisplenic ascites. Adrenal Glands: No adrenal gland nodule or mass. Kidneys and Ureters: Normal in appearance. Stomach and Bowel: No abnormally dilated or thickened loop of bowel. No pericolonic or mesenteric inflammatory changes. Peritoneum: Free fluid in the abdomen and pelvis. No free air. Ventral Wall: No hernias. Abdominal Nodes: No retroperitoneal or mesenteric adenopathy by size criteria. Vessels: Aorta and inferior vena cava are normal in size. PELVIS: Pelvic Organs: Suspected small uterine fibroids. Small volume fluid in the uterine cavity. Ovaries unremarkable. Bladder: Normal. Pelvic Nodes: No enlarged lymph nodes. Miscellaneous: No hernias are seen. Bones: Unremarkable. IMPRESSION: Diffuse hepatic hypoattenuation with heterogeneous mottled attenuation of the liver. Findings are suggestive of moderate to severe hepatic steatosis with steatohepatitis or another diffuse infectious or inflammatory hepatocellular process. Splenomegaly, small volume pleural effusions and small volume ascites presumably related. Dictated by: Zeeshan Watkins M.D. on 05/17/2021 at 20:03 Approved by: Zeeshan Watkins M.D. on 05/17/2021 at 20:08 [facility] Narrative Medical decision making narrative: 60-year-old female no reported past medical history presents to the ED with 2 days of diffuse abdominal pain. Concern for pancreatitis versus cholecystitis versus choledocholithiasis versus cholangitis versus gastritis versus PUD versus GERD versus UTI. Will order labs, UA, lipase, ultrasound RUQ. Will reassess. Dispo dependent on workup. Lab Data Result diagrams: 05/17/21 16:41 05/17/21 16:41 Labs: Lab Results 05/17/21 05/17/21 05/17/21 Range/Units 16:30 16:30 16:41 WBC 17.1 H (4.5-11.0) X10^3/uL RBC 3.07 L (4.0-5.2) X10^6/uL Hgb 12.2 (12.0-16.0) g/dL Hct 35.9 L (36-46) % MCV 117.1 H (80-100) fL MCH 39.9 H (26-34) PG MCHC 34.1 (30-36) % RDW 15.1 H (11.6-14.8) % Plt Count 223 (150-400) X10^3/uL Neut % (Auto) 81.4 H (50-75) % Lymph % (Auto) 8.2 L (25-40) % Vigo % (Auto) 9.8 (3-14) % Eos % (Auto) 0.1 L (2-4) % Baso % (Auto) 0.5 (0-2) % Neut # (Auto) 02754 H (3528-8132) /uL Lymph # (Auto) 1400 (7982-3086) /uL Vigo # (Auto) 1700 H (0-900) /uL Eos # (Auto) 0 (0-450) /uL Baso # (Auto) 100 (0-100) /uL RBC Morphology See below Macrocytosis 2+ H PT (10.1-12.7) SECONDS INR (0.9-1.3) APTT (26.4-36.2) SECONDS Sodium (137-145) mmol/L Potassium (3.4-5.1) mmol/L Chloride (98-107) mmol/L Carbon Dioxide (22-32) mmol/L BUN (7-17) mg/dL Creatinine (0.52-1.04) mg/dL Estimated GFR (>60) mL/min BUN/Creatinine Ratio (6-22) Glucose (80-110) mg/dL Lactate (0.7-2.1) mmol/L Calcium (8.4-10.2) mg/dL Magnesium (1.6-2.3) mg/dL Total Bilirubin (0.2-1.3) mg/dL GGT (12-43) U/L AST (14-36) IU/L ALT (<35) IU/L Alkaline Phosphatase (38-126) U/L Total Protein (6.3-8.2) g/dL Albumin (3.5-5.0) g/dL Globulin (1.7-4.1) g/dL Albumin/Globulin Ratio (1.0-2.8) Lipase (23-300) U/L Procalcitonin (<0.5) ng/mL Ur Bilirubin Confirm Positive H (Negative) Urine RBC 1-5/hpf (0-5/HPF) Urine WBC 5-10/hpf H (0-5/HPF) Ur Squamous Epith Cells 1-5 /hpf (0-5/HPF) Amorphous Sediment 2+ Urine Bacteria Many (>30) H (None) Ur Culture Indicated? Culture not indicate Acetaminophen (10-30) ug/mL SARS-CoV-2 (PCR) (Negative) 05/17/21 05/17/21 05/17/21 Range/Units 16:41 16:41 16:41 WBC (4.5-11.0) X10^3/uL RBC (4.0-5.2) X10^6/uL Hgb (12.0-16.0) g/dL Hct (36-46) % MCV (80-100) fL MCH (26-34) PG MCHC (30-36) % RDW (11.6-14.8) % Plt Count (150-400) X10^3/uL Neut % (Auto) (50-75) % Lymph % (Auto) (25-40) % Vigo % (Auto) (3-14) % Eos % (Auto) (2-4) % Baso % (Auto) (0-2) % Neut # (Auto) (7675-6842) /uL Lymph # (Auto) (1799-8591) /uL Vigo # (Auto) (0-900) /uL Eos # (Auto) (0-450) /uL Baso # (Auto) (0-100) /uL RBC Morphology Macrocytosis PT (10.1-12.7) SECONDS INR (0.9-1.3) APTT (26.4-36.2) SECONDS Sodium 132 L (137-145) mmol/L Potassium 4.1 (3.4-5.1) mmol/L Chloride 95 L (98-107) mmol/L Carbon Dioxide 26 (22-32) mmol/L BUN 13 (7-17) mg/dL Creatinine 0.74 (0.52-1.04) mg/dL Estimated GFR > 60.0 (>60) mL/min BUN/Creatinine Ratio 17.6 (6-22) Glucose 83 (80-110) mg/dL Lactate 4.2 H* (0.7-2.1) mmol/L Calcium 8.5 (8.4-10.2) mg/dL Magnesium (1.6-2.3) mg/dL Total Bilirubin 11.0 H (0.2-1.3) mg/dL GGT (12-43) U/L AST 240 H (14-36) IU/L ALT 33 (<35) IU/L Alkaline Phosphatase 248 H (38-126) U/L Total Protein 7.6 (6.3-8.2) g/dL Albumin 3.6 (3.5-5.0) g/dL Globulin 4.0 (1.7-4.1) g/dL Albumin/Globulin Ratio 0.9 L (1.0-2.8) Lipase 14 L (23-300) U/L Procalcitonin 5.91 H (<0.5) ng/mL Ur Bilirubin Confirm (Negative) Urine RBC (0-5/HPF) Urine WBC (0-5/HPF) Ur Squamous Epith Cells (0-5/HPF) Amorphous Sediment Urine Bacteria (None) Ur Culture Indicated? Acetaminophen (10-30) ug/mL SARS-CoV-2 (PCR) (Negative) 05/17/21 05/17/21 05/17/21 Range/Units 16:41 16:41 20:15 WBC (4.5-11.0) X10^3/uL RBC (4.0-5.2) X10^6/uL Hgb (12.0-16.0) g/dL Hct (36-46) % MCV (80-100) fL MCH (26-34) PG MCHC (30-36) % RDW (11.6-14.8) % Plt Count (150-400) X10^3/uL Neut % (Auto) (50-75) % Lymph % (Auto) (25-40) % Vigo % (Auto) (3-14) % Eos % (Auto) (2-4) % Baso % (Auto) (0-2) % Neut # (Auto) (2539-9649) /uL Lymph # (Auto) (5205-2448) /uL Vigo # (Auto) (0-900) /uL Eos # (Auto) (0-450) /uL Baso # (Auto) (0-100) /uL RBC Morphology Macrocytosis PT 19.7 H (10.1-12.7) SECONDS INR 1.7 H (0.9-1.3) APTT 42 H (26.4-36.2) SECONDS Sodium (137-145) mmol/L Potassium (3.4-5.1) mmol/L Chloride (98-107) mmol/L Carbon Dioxide (22-32) mmol/L BUN (7-17) mg/dL Creatinine (0.52-1.04) mg/dL Estimated GFR (>60) mL/min BUN/Creatinine Ratio (6-22) Glucose (80-110) mg/dL Lactate (0.7-2.1) mmol/L Calcium (8.4-10.2) mg/dL Magnesium 1.1 L (1.6-2.3) mg/dL Total Bilirubin (0.2-1.3) mg/dL GGT 674 H (12-43) U/L AST (14-36) IU/L ALT (<35) IU/L Alkaline Phosphatase (38-126) U/L Total Protein (6.3-8.2) g/dL Albumin (3.5-5.0) g/dL Globulin (1.7-4.1) g/dL Albumin/Globulin Ratio (1.0-2.8) Lipase (23-300) U/L Procalcitonin (<0.5) ng/mL Ur Bilirubin Confirm (Negative) Urine RBC (0-5/HPF) Urine WBC (0-5/HPF) Ur Squamous Epith Cells (0-5/HPF) Amorphous Sediment Urine Bacteria (None) Ur Culture Indicated? Acetaminophen < 10 L (10-30) ug/mL SARS-CoV-2 (PCR) Negative (Negative) Urine Dip Bedside Urine Glucose Negative Bedside Urine Bilirubin ++ 2 Bedside Urine Ketone +/- 5 Urine Specific Delcambre 1.03 Bedside Urine Occult Blood +/- Bedside Urine pH 6 Bedside Urine Protein + 30 Bedside Urine Urobilinogen 1+ 2mg Bedside Urine Nitrite + Positive Bedside Urine Leukocytes + 70 Esterase <Safia Cervantes MD - Last Filed: 05/18/21 03:24> Medical Records Attestation: I reviewed the patient's medical records. Lab Data Attestation: I reviewed the patient's lab results. Labs: Lab Results 05/17/21 05/17/21 05/17/21 Range/Units 16:30 16:30 16:41 WBC 17.1 H (4.5-11.0) X10^3/uL RBC 3.07 L (4.0-5.2) X10^6/uL Hgb 12.2 (12.0-16.0) g/dL Hct 35.9 L (36-46) % MCV 117.1 H (80-100) fL MCH 39.9 H (26-34) PG MCHC 34.1 (30-36) % RDW 15.1 H (11.6-14.8) % Plt Count 223 (150-400) X10^3/uL Neut % (Auto) 81.4 H (50-75) % Lymph % (Auto) 8.2 L (25-40) % Vigo % (Auto) 9.8 (3-14) % Eos % (Auto) 0.1 L (2-4) % Baso % (Auto) 0.5 (0-2) % Neut # (Auto) 09328 H (1953-4469) /uL Lymph # (Auto) 1400 (8866-9419) /uL Vigo # (Auto) 1700 H (0-900) /uL Eos # (Auto) 0 (0-450) /uL Baso # (Auto) 100 (0-100) /uL RBC Morphology See below Macrocytosis 2+ H PT (10.1-12.7) SECONDS INR (0.9-1.3) APTT (26.4-36.2) SECONDS Sodium (137-145) mmol/L Potassium (3.4-5.1) mmol/L Chloride (98-107) mmol/L Carbon Dioxide (22-32) mmol/L BUN (7-17) mg/dL Creatinine (0.52-1.04) mg/dL Estimated GFR (>60) mL/min BUN/Creatinine Ratio (6-22) Glucose (80-110) mg/dL Lactate (0.7-2.1) mmol/L Calcium (8.4-10.2) mg/dL Magnesium (1.6-2.3) mg/dL Total Bilirubin (0.2-1.3) mg/dL GGT (12-43) U/L AST (14-36) IU/L ALT (<35) IU/L Alkaline Phosphatase (38-126) U/L Total Protein (6.3-8.2) g/dL Albumin (3.5-5.0) g/dL Globulin (1.7-4.1) g/dL Albumin/Globulin Ratio (1.0-2.8) Lipase (23-300) U/L Procalcitonin (<0.5) ng/mL Ur Bilirubin Confirm Positive H (Negative) Urine RBC 1-5/hpf (0-5/HPF) Urine WBC 5-10/hpf H (0-5/HPF) Ur Squamous Epith Cells 1-5 /hpf (0-5/HPF) Amorphous Sediment 2+ Urine Bacteria Many (>30) H (None) Ur Culture Indicated? Culture not indicate Acetaminophen (10-30) ug/mL SARS-CoV-2 (PCR) (Negative) 05/17/21 05/17/21 05/17/21 Range/Units 16:41 16:41 16:41 WBC (4.5-11.0) X10^3/uL RBC (4.0-5.2) X10^6/uL Hgb (12.0-16.0) g/dL Hct (36-46) % MCV (80-100) fL MCH (26-34) PG MCHC (30-36) % RDW (11.6-14.8) % Plt Count (150-400) X10^3/uL Neut % (Auto) (50-75) % Lymph % (Auto) (25-40) % Vigo % (Auto) (3-14) % Eos % (Auto) (2-4) % Baso % (Auto) (0-2) % Neut # (Auto) (3919-4441) /uL Lymph # (Auto) (5300-6064) /uL Vigo # (Auto) (0-900) /uL Eos # (Auto) (0-450) /uL Baso # (Auto) (0-100) /uL RBC Morphology Macrocytosis PT (10.1-12.7) SECONDS INR (0.9-1.3) APTT (26.4-36.2) SECONDS Sodium 132 L (137-145) mmol/L Potassium 4.1 (3.4-5.1) mmol/L Chloride 95 L (98-107) mmol/L Carbon Dioxide 26 (22-32) mmol/L BUN 13 (7-17) mg/dL Creatinine 0.74 (0.52-1.04) mg/dL Estimated GFR > 60.0 (>60) mL/min BUN/Creatinine Ratio 17.6 (6-22) Glucose 83 (80-110) mg/dL Lactate 4.2 H* (0.7-2.1) mmol/L Calcium 8.5 (8.4-10.2) mg/dL Magnesium (1.6-2.3) mg/dL Total Bilirubin 11.0 H (0.2-1.3) mg/dL GGT (12-43) U/L AST 240 H (14-36) IU/L ALT 33 (<35) IU/L Alkaline Phosphatase 248 H (38-126) U/L Total Protein 7.6 (6.3-8.2) g/dL Albumin 3.6 (3.5-5.0) g/dL Globulin 4.0 (1.7-4.1) g/dL Albumin/Globulin Ratio 0.9 L (1.0-2.8) Lipase 14 L (23-300) U/L Procalcitonin 5.91 H (<0.5) ng/mL Ur Bilirubin Confirm (Negative) Urine RBC (0-5/HPF) Urine WBC (0-5/HPF) Ur Squamous Epith Cells (0-5/HPF) Amorphous Sediment Urine Bacteria (None) Ur Culture Indicated? Acetaminophen (10-30) ug/mL SARS-CoV-2 (PCR) (Negative) 05/17/21 05/17/21 05/17/21 Range/Units 16:41 16:41 20:15 WBC (4.5-11.0) X10^3/uL RBC (4.0-5.2) X10^6/uL Hgb (12.0-16.0) g/dL Hct (36-46) % MCV (80-100) fL MCH (26-34) PG MCHC (30-36) % RDW (11.6-14.8) % Plt Count (150-400) X10^3/uL Neut % (Auto) (50-75) % Lymph % (Auto) (25-40) % Vigo % (Auto) (3-14) % Eos % (Auto) (2-4) % Baso % (Auto) (0-2) % Neut # (Auto) (6321-7268) /uL Lymph # (Auto) (8590-1809) /uL Vigo # (Auto) (0-900) /uL Eos # (Auto) (0-450) /uL Baso # (Auto) (0-100) /uL RBC Morphology Macrocytosis PT 19.7 H (10.1-12.7) SECONDS INR 1.7 H (0.9-1.3) APTT 42 H (26.4-36.2) SECONDS Sodium (137-145) mmol/L Potassium (3.4-5.1) mmol/L Chloride (98-107) mmol/L Carbon Dioxide (22-32) mmol/L BUN (7-17) mg/dL Creatinine (0.52-1.04) mg/dL Estimated GFR (>60) mL/min BUN/Creatinine Ratio (6-22) Glucose (80-110) mg/dL Lactate (0.7-2.1) mmol/L Calcium (8.4-10.2) mg/dL Magnesium 1.1 L (1.6-2.3) mg/dL Total Bilirubin (0.2-1.3) mg/dL GGT 674 H (12-43) U/L AST (14-36) IU/L ALT (<35) IU/L Alkaline Phosphatase (38-126) U/L Total Protein (6.3-8.2) g/dL Albumin (3.5-5.0) g/dL Globulin (1.7-4.1) g/dL Albumin/Globulin Ratio (1.0-2.8) Lipase (23-300) U/L Procalcitonin (<0.5) ng/mL Ur Bilirubin Confirm (Negative) Urine RBC (0-5/HPF) Urine WBC (0-5/HPF) Ur Squamous Epith Cells (0-5/HPF) Amorphous Sediment Urine Bacteria (None) Ur Culture Indicated? Acetaminophen < 10 L (10-30) ug/mL SARS-CoV-2 (PCR) Negative (Negative) Point of care testing: Urine Dip Bedside Urine Glucose Negative Bedside Urine Bilirubin ++ 2 Bedside Urine Ketone +/- 5 Urine Specific Delcambre 1.03 Bedside Urine Occult Blood +/- Bedside Urine pH 6 Bedside Urine Protein + 30 Bedside Urine Urobilinogen 1+ 2mg Bedside Urine Nitrite + Positive Bedside Urine Leukocytes + 70 Esterase MDM Narrative Medical decision making narrative: 60-year-old female no reported past medical history presents to the ED with 2 days of diffuse abdominal pain. Concern for pancreatitis versus cholecystitis versus choledocholithiasis versus cholangitis versus gastritis versus PUD versus GERD versus UTI. Will order labs, UA, lipase, ultrasound RUQ. Will reassess. Dispo dependent on workup. 845pm Care assumed. Labs reviewed and at this point she has an obstructive biliary pattern without evidence of severe sepsis, common bile duct stone, pancreatic mass, sphinctor of aleksey stricture, other entered of abdominal abnormalities that might explain the lab findings. Blood pressure is slightly low will treat her with fluids, lactic acid and blood cultures are currently pending. She will be started on Zosyn and will be admitted to the hospitalist service. Blood pressures were initially 98 systolic range after L of fluid they are in the 105 range. Will re-evaluate after the 2 L of fluid as well. 940 pm: lactic acid drawn with initial labs but not ordered. Resulted now, and is 4.2. It is currently being repeated. Patient remains afebrile. She is meeting signs of severe sepsis with total bili greater than 2 lactic acid greater than 2 and concern for a gastrointestinal source of infection associated with her liver. At this time there is no evidence of acute pancreatitis, cholecystitis or other intra-abdominal abscess. Ascending cholangitis is within the differential. Alcohol related liver issues are also a possibility. She may have in fact passed a common bile duct stone recently. She is responding nicely to fluids and will complete a 30 per kilos bolus. She is not showing signs of septic shock and is safe for transfer to the floor. Care is reviewed with Ms. Quinones, hospitalist KYLAH hagen. Differential Diagnosis Current stage of sepsis: severe sepsis (lactic acid 4.2, resulted at 940pm T bili 11.0) Possible source sepsis: GI tract/intra-abdominal Differential diagnosis: SIRS (passed common bile duct stone, ascending cholangitis) Fluid responsiveness: fluid responsive Medical Records Attestation: I reviewed the patient's medical records. Lab Data Attestation: I reviewed the patient's lab results. Labs: Lab Results 05/17/21 05/17/21 05/17/21 Range/Units 16:30 16:30 16:41 WBC 17.1 H (4.5-11.0) X10^3/uL RBC 3.07 L (4.0-5.2) X10^6/uL Hgb 12.2 (12.0-16.0) g/dL Hct 35.9 L (36-46) % MCV 117.1 H (80-100) fL MCH 39.9 H (26-34) PG MCHC 34.1 (30-36) % RDW 15.1 H (11.6-14.8) % Plt Count 223 (150-400) X10^3/uL Neut % (Auto) 81.4 H (50-75) % Lymph % (Auto) 8.2 L (25-40) % Vigo % (Auto) 9.8 (3-14) % Eos % (Auto) 0.1 L (2-4) % Baso % (Auto) 0.5 (0-2) % Neut # (Auto) 56702 H (1691-6675) /uL Lymph # (Auto) 1400 (9582-2791) /uL Vigo # (Auto) 1700 H (0-900) /uL Eos # (Auto) 0 (0-450) /uL Baso # (Auto) 100 (0-100) /uL RBC Morphology See below Macrocytosis 2+ H PT (10.1-12.7) SECONDS INR (0.9-1.3) APTT (26.4-36.2) SECONDS Sodium (137-145) mmol/L Potassium (3.4-5.1) mmol/L Chloride (98-107) mmol/L Carbon Dioxide (22-32) mmol/L BUN (7-17) mg/dL Creatinine (0.52-1.04) mg/dL Estimated GFR (>60) mL/min BUN/Creatinine Ratio (6-22) Glucose (80-110) mg/dL Lactate (0.7-2.1) mmol/L Calcium (8.4-10.2) mg/dL Magnesium (1.6-2.3) mg/dL Total Bilirubin (0.2-1.3) mg/dL GGT (12-43) U/L AST (14-36) IU/L ALT (<35) IU/L Alkaline Phosphatase (38-126) U/L Total Protein (6.3-8.2) g/dL Albumin (3.5-5.0) g/dL Globulin (1.7-4.1) g/dL Albumin/Globulin Ratio (1.0-2.8) Lipase (23-300) U/L Procalcitonin (<0.5) ng/mL Ur Bilirubin Confirm Positive H (Negative) Urine RBC 1-5/hpf (0-5/HPF) Urine WBC 5-10/hpf H (0-5/HPF) Ur Squamous Epith Cells 1-5 /hpf (0-5/HPF) Amorphous Sediment 2+ Urine Bacteria Many (>30) H (None) Ur Culture Indicated? Culture not indicate Acetaminophen (10-30) ug/mL SARS-CoV-2 (PCR) (Negative) 05/17/21 05/17/21 05/17/21 Range/Units 16:41 16:41 16:41 WBC (4.5-11.0) X10^3/uL RBC (4.0-5.2) X10^6/uL Hgb (12.0-16.0) g/dL Hct (36-46) % MCV (80-100) fL MCH (26-34) PG MCHC (30-36) % RDW (11.6-14.8) % Plt Count (150-400) X10^3/uL Neut % (Auto) (50-75) % Lymph % (Auto) (25-40) % Vigo % (Auto) (3-14) % Eos % (Auto) (2-4) % Baso % (Auto) (0-2) % Neut # (Auto) (7098-1341) /uL Lymph # (Auto) (3093-3584) /uL Vigo # (Auto) (0-900) /uL Eos # (Auto) (0-450) /uL Baso # (Auto) (0-100) /uL RBC Morphology Macrocytosis PT (10.1-12.7) SECONDS INR (0.9-1.3) APTT (26.4-36.2) SECONDS Sodium 132 L (137-145) mmol/L Potassium 4.1 (3.4-5.1) mmol/L Chloride 95 L (98-107) mmol/L Carbon Dioxide 26 (22-32) mmol/L BUN 13 (7-17) mg/dL Creatinine 0.74 (0.52-1.04) mg/dL Estimated GFR > 60.0 (>60) mL/min BUN/Creatinine Ratio 17.6 (6-22) Glucose 83 (80-110) mg/dL Lactate 4.2 H* (0.7-2.1) mmol/L Calcium 8.5 (8.4-10.2) mg/dL Magnesium (1.6-2.3) mg/dL Total Bilirubin 11.0 H (0.2-1.3) mg/dL GGT (12-43) U/L AST 240 H (14-36) IU/L ALT 33 (<35) IU/L Alkaline Phosphatase 248 H (38-126) U/L Total Protein 7.6 (6.3-8.2) g/dL Albumin 3.6 (3.5-5.0) g/dL Globulin 4.0 (1.7-4.1) g/dL Albumin/Globulin Ratio 0.9 L (1.0-2.8) Lipase 14 L (23-300) U/L Procalcitonin 5.91 H (<0.5) ng/mL Ur Bilirubin Confirm (Negative) Urine RBC (0-5/HPF) Urine WBC (0-5/HPF) Ur Squamous Epith Cells (0-5/HPF) Amorphous Sediment Urine Bacteria (None) Ur Culture Indicated? Acetaminophen (10-30) ug/mL SARS-CoV-2 (PCR) (Negative) 05/17/21 05/17/21 05/17/21 Range/Units 16:41 16:41 20:15 WBC (4.5-11.0) X10^3/uL RBC (4.0-5.2) X10^6/uL Hgb (12.0-16.0) g/dL Hct (36-46) % MCV (80-100) fL MCH (26-34) PG MCHC (30-36) % RDW (11.6-14.8) % Plt Count (150-400) X10^3/uL Neut % (Auto) (50-75) % Lymph % (Auto) (25-40) % Vigo % (Auto) (3-14) % Eos % (Auto) (2-4) % Baso % (Auto) (0-2) % Neut # (Auto) (1521-3638) /uL Lymph # (Auto) (3395-0957) /uL Vigo # (Auto) (0-900) /uL Eos # (Auto) (0-450) /uL Baso # (Auto) (0-100) /uL RBC Morphology Macrocytosis PT 19.7 H (10.1-12.7) SECONDS INR 1.7 H (0.9-1.3) APTT 42 H (26.4-36.2) SECONDS Sodium (137-145) mmol/L Potassium (3.4-5.1) mmol/L Chloride (98-107) mmol/L Carbon Dioxide (22-32) mmol/L BUN (7-17) mg/dL Creatinine (0.52-1.04) mg/dL Estimated GFR (>60) mL/min BUN/Creatinine Ratio (6-22) Glucose (80-110) mg/dL Lactate (0.7-2.1) mmol/L Calcium (8.4-10.2) mg/dL Magnesium 1.1 L (1.6-2.3) mg/dL Total Bilirubin (0.2-1.3) mg/dL GGT 674 H (12-43) U/L AST (14-36) IU/L ALT (<35) IU/L Alkaline Phosphatase (38-126) U/L Total Protein (6.3-8.2) g/dL Albumin (3.5-5.0) g/dL Globulin (1.7-4.1) g/dL Albumin/Globulin Ratio (1.0-2.8) Lipase (23-300) U/L Procalcitonin (<0.5) ng/mL Ur Bilirubin Confirm (Negative) Urine RBC (0-5/HPF) Urine WBC (0-5/HPF) Ur Squamous Epith Cells (0-5/HPF) Amorphous Sediment Urine Bacteria (None) Ur Culture Indicated? Acetaminophen < 10 L (10-30) ug/mL SARS-CoV-2 (PCR) Negative (Negative) Urine Dip Bedside Urine Glucose Negative Bedside Urine Bilirubin ++ 2 Bedside Urine Ketone +/- 5 Urine Specific Delcambre 1.03 Bedside Urine Occult Blood +/- Bedside Urine pH 6 Bedside Urine Protein + 30 Bedside Urine Urobilinogen 1+ 2mg Bedside Urine Nitrite + Positive Bedside Urine Leukocytes + 70 Esterase Discharge Plan Departure Patient Disposition: Admitted As Inpatient Clinical Impression: Elevated bilirubin, Abdominal pain, Alkaline phosphatase elevation Admit Date/Time: 05/17/21 21:05 Admit Provider: Iraida Quinones <Corinne Metcalf PA-C - Last Filed: 05/17/21 20:46> Focused Exam Vital Signs Temp Pulse Resp BP Pulse Ox 05/17/21 21:00 86 104/56 L 92 05/17/21 20:30 88 105/54 L 91 05/17/21 20:12 88 109/58 L 94 05/17/21 20:11 94 05/17/21 19:30 86 98/57 L 93 05/17/21 19:17 87 95/55 L 96 05/17/21 19:00 90 92 05/17/21 18:51 93 H 97 05/17/21 16:59 99 F 90 16 103/56 L 98 <Safia Cervantse MD - Last Filed: 05/18/21 03:24> Evaluation Sepsis screening result: No Definite Risk Current stage of sepsis: severe sepsis (lactic acid 4.2, resulted at 940pm T bili 11.0) Possible source: GI tract/intra-abdominal Focused Exam Vital Signs Temp Pulse Resp BP Pulse Ox 05/17/21 21:00 86 104/56 L 92 05/17/21 20:30 88 105/54 L 91 05/17/21 20:12 88 109/58 L 94 05/17/21 20:11 94 05/17/21 19:30 86 98/57 L 93 05/17/21 19:17 87 95/55 L 96 05/17/21 19:00 90 92 05/17/21 18:51 93 H 97 05/17/21 16:59 99 F 90 16 103/56 L 98 Bedside Monitoring Fluid responsiveness: fluid responsive
--- NOTE | 2021-05-17 19:32 | DI.CT.S_ITS ---
PROCEDURE: CT ABDOMEN PELVIS W CON INDICATIONS: Abdominal pain TECHNIQUE: After the administration of intravenous contrast, axial sections acquired from the lung bases to the pubic symphysis. Coronal and sagittal reformats were performed. For radiation dose reduction, the following was used: automated exposure control, adjustment of mA and/or kV according to patient size. COMPARISON: None. FINDINGS: Image quality: Excellent. Lung bases: Unremarkable. Heart: No significant findings. ABDOMEN: Liver: Severe hepatic steatosis. Mottled attenuation of the liver, nonspecific but suggestive of diffuse hepatocellular disorder. Perihepatic ascites. Gallbladder: Fluid adjacent to the gallbladder is presumably related to diffuse liver disease. No gallbladder wall thickening. Biliary ducts: No intrahepatic or extrahepatic biliary ductal dilatation. Pancreas: No peripancreatic inflammatory changes or pancreatic ductal dilatation. Spleen: Enlarged spleen measuring up to 14 centimeters in greatest dimension. Mild perisplenic ascites. Adrenal Glands: No adrenal gland nodule or mass. Kidneys and Ureters: Normal in appearance. Stomach and Bowel: No abnormally dilated or thickened loop of bowel. No pericolonic or mesenteric inflammatory changes. Peritoneum: Free fluid in the abdomen and pelvis. No free air. Ventral Wall: No hernias. Abdominal Nodes: No retroperitoneal or mesenteric adenopathy by size criteria. Vessels: Aorta and inferior vena cava are normal in size. PELVIS: Pelvic Organs: Suspected small uterine fibroids. Small volume fluid in the uterine cavity. Ovaries unremarkable. Bladder: Normal. Pelvic Nodes: No enlarged lymph nodes. Miscellaneous: No hernias are seen. Bones: Unremarkable. IMPRESSION: Diffuse hepatic hypoattenuation with heterogeneous mottled attenuation of the liver. Findings are suggestive of moderate to severe hepatic steatosis with steatohepatitis or another diffuse infectious or inflammatory hepatocellular process. Splenomegaly, small volume pleural effusions and small volume ascites presumably related. Dictated by: Zeeshan Watkins M.D. on 05/17/2021 at 20:03 Approved by: Zeeshan Watkins M.D. on 05/17/2021 at 20:08
[2021-05-17 21:22] LABS: Lactate (Lactic Acid) 4.2 mmol/L (0.7-2.1)
[2021-05-17 21:28] LABS: COVID19 - ADMIT (NP swab/PCR) Negative (Negative)
[2021-05-17] MEDS: PIPERACILLIN/TAZO 4.5 GM in SODIUM CHLORIDE 0.9% 100 ML 200 ML IV (21:31)
[2021-05-17] MEDS: SODIUM CHLORIDE 0.9% 1,000 ML 2000 ML IV (21:32)
[2021-05-17 21:43] LABS: Procalcitonin 5.91 ng/mL (<0.5)
[2021-05-17 21:48] LABS: Lactate 2HR (Lactic Acid Rflx) 2.3 mmol/L (0.7-2.1)
[2021-05-17 23:05] LABS: Reflexed Lactate in 2 Hours Y
[2021-05-17] MEDS: HYDROMORPHONE 0.5 MG INJ IV (23:53)
[2021-05-18] VITALS (25 sets, daily range): BP systolic 94–163; BP diastolic 51–83; PULSE 78–97; RESP 16–18; TEMP 36.5–37.1; O2SAT 91–96; BMI 27.2
[2021-05-18 00:04] LABS: Acetaminophen < 10 ug/mL (10-30); Gamma Glutamyl Transpeptidase 674 U/L (12-43); Magnesium 1.1 mg/dL (1.6-2.3)
[2021-05-18 00:06] LABS: INR 1.7 (0.9-1.3); Prothrombin Time 19.7 SECONDS (10.1-12.7)
[2021-05-18 00:09] LABS: PTT Partial Thromboplastin Tim 42 SECONDS (26.4-36.2)
[2021-05-18] MEDS: SODIUM CHLORIDE 0.9% 1,000 ML 150 ML IV ×2 (00:10→05:34)
--- NOTE | 2021-05-18 03:21 | P.HP_ITS ---
History of Present Illness History of Present Illness Date Patient Seen: 05/17/21 Time Patient Seen: 23:30 Chief complaint: ABD PAIN Narrative: Charmaine Watt is a 60-year-old female with no reported past medical history or medications who presents to the ED with 2 days of diffuse abdominal pain, that woke her up in the middle of the night, nausea, and new onset ab dominal distention. Patient reports that she has been gagging but no vomiting, the abdominal pain and pressure is diffuse across her abdomen is a 2/3 at the time of admit due to pain medication in the ED, the pain is constant it worsens with any sort of movement, or coughing. Patient reports the pain is sharp to throbbing without radiation. Patient endorses a subjective fever, chills. Patient denies chest pain, shortness of breath, vomiting, dysuria, hematochezia, melena, hematuria, lightheadedness, syncope, dizziness. Patient endorsed moderate to heavy daily alcohol use (Vodka) for several years to the ED provider. Patient also reports an increased intake of NSAIDs, decreased appetite decreased taste, no exposure to viruses, herpes zoster, hepatitis, and has not eaten at a restaurant in the past 2 weeks. She does note that she was on vacation last week and january of had a larger intake of alcohol than normal. Denies having been diagnosed with cirrhosis, states she has not been to a doctor in a long time. Denies history of gallstones. Patient reports that she has never smoked cigarettes but has smoked THC times 40 years. Patient is resting comfortably in the ED bed at this time in no distress upon admit, patient is febrile with a temp of 101?, BP 106/55 (slightly hypotensive previous recording shows systolic of 137, HR 90, R 16, O2 saturation 92% on 2 L nasal cannula. Patient is not on O2 at home. Patient has an elevated WBC 17.1, neutrophils 14,000, HCT 35.9, MCV 117.1. Sodium 132, chloride 95, total bili 11, AST 240, alk-phos 248, initial lactate 4.2, lipase 14, procalcitonin 5.91, urinalysis: urine bili positive high, wbc's 5-10, bacteria many. ABD/Pelvis CT showed Diffuse hepatic hypoattenuation with heterogeneous mottled attenuation of the liver. Findings are suggestive of moderate to severe hepatic steatosis with steatohepatitis or another diffuse infectious or inflammatory hepatocellular process. Splenomegaly, small volume pleural effusions and small volume ascites presumably related. ABD MRI: No findings of choledocholithiasis or biliary ductal dilatation. Tiny gallstone with no findings of cholecystitis. Severe hepatic steatosis with suspected diffuse hepatocellular disease. Cirrhosis is not excluded. There is splenomegaly along with perihepatic and perisplenic ascites, along with small pleural effusions. ABD U/S: Dense echogenic liver either reflects advanced hepatic fatty infiltration of cirrhosis. Gallbladder wall thickening, pericholecystic fluid without cholelithiasis. Patient admitted for acute respiratory failure with hypoxia, with sepsis, hepatic injury, and abdominal pain. Patient History Medical History (Updated 05/18/21 @ 03:49 by LEXIE Norris) Alcohol abuse Herniated lumbar disc without myelopathy No significant past medical history Tetrahydrocannabinol (THC) use disorder, mild, abuse Surgical History (Updated 05/18/21 @ 03:49 by LEXIE Norris) No history of previous surgery Family & Social History Family History (Updated 05/18/21 @ 03:50 by LEXIE Norris) Mother Multiple sclerosis Father Heart disease Kidney failure Safety & Behavioral: Feels Safe in Current Yes Environment Been Physically Hurt or No Threatened By a Person Tobacco & Substance use: Smoking Status Current smoker of THC not tobacco alcohol intake frequency 3 or more drinks per day- heavy drinker for several years. Substance Use Type marijuana Meds Home Medications and Allergies Home Medications Medication Instructions Recorded Confirmed Type No Known Home Medications 05/17/21 05/17/21 History Allergies Allergy/AdvReac Type Severity Reaction Status Date / Time ibuprofen Allergy Verified 05/17/21 21:33 acetaminophen [From Percocet] AdvReac Verified 05/17/21 21:33 oxycodone [From Percocet] AdvReac Verified 05/17/21 21:33 Review of Systems Review of Systems Narrative: All 12 point systems reviewed with the patient and are negative except otherwise documented. Exam Vital Signs (past 8 hours): - 05/17/21 19:30 05/17/21 20:11 05/17/21 20:12 Pulse Rate 86 88 Blood Pressure 98/57 L 109/58 L Pulse Oximetry 93 94 94 05/17/21 20:30 05/17/21 21:00 05/17/21 21:30 Pulse Rate 88 86 90 Blood Pressure 105/54 L 104/56 L 106/55 L Pulse Oximetry 91 92 92 05/17/21 22:00 05/17/21 22:30 05/17/21 23:00 Pulse Rate 88 87 93 H Blood Pressure 101/54 L 107/58 L 113/58 L Pulse Oximetry 92 95 05/17/21 23:30 05/18/21 00:00 05/18/21 00:30 Pulse Rate 92 H 89 87 Blood Pressure 97/52 L 103/53 L 120/57 L Pulse Oximetry 93 94 95 05/18/21 01:00 05/18/21 01:30 05/18/21 02:00 Pulse Rate 90 87 89 Blood Pressure 113/61 102/51 L 103/58 L Pulse Oximetry 94 92 93 05/18/21 02:30 05/18/21 03:00 Pulse Rate 84 83 Blood Pressure 107/53 L 105/59 L Pulse Oximetry 92 93 Oxygen Delivery Method Nasal Cannula Oxygen Flow Rate 2 Narrative Exam Narrative: General: Patient is a well-developed, well-nourished female in no distress at this time. HEENT: Normocephalic, atraumatic, extraocular muscles intact, scleral icterus, oral pharynx is clear and mucous membranes are moist. Neck is supple and symmetric, trachea is midline, no adenopathy, no thyroid enlargement, nontender, no masses palpated. Negative for JVD Chest: Normal AP diameter and contour without kyphoscoliosis, no nasal flaring, retractions, or tachypneic labored Lungs: Auscultation of all lung vasuqez are decreased but equal with occasional exp wheezing without, rhonchi, or rales. Cardio: S1 & S2 with regular rate and rhythm without murmur, rubs, or gallops, no carotid bruit, no cardiac pulsations present. Abdomen: Firm distended moderately tender, unable to assess for organomegaly, or masses. Bowel sounds are present in all 4 quadrants without guarding or rebound, no CVA tenderness. Musculoskeletal: Muscle strength and tone are equal within normal limits, no deformity, crepitus, effusions, cyanosis, clubbing or edema present. Full range of motion intact radial and pedal pulses are normal. Skin: Warm dry, patient's skin has a slight icterus appearance, abdomen has noted bruising on the left upper quadrant from a fishing trip on 05/08, patient's left leg appears dry scaly smaller than left leg with decreased circulation warmer to touch then right skin is hyperpigmentated dark maroon in color greater than the right. Poor skin care, this poor condition of the skin extends to the feet. Pt has a large scar healed w/out signs of infection to the inner right calf area. Neuro: Alert and orientated x3, strength is +5/5 in all extremities, sensation to touch intact, no gross deficits noted of cranial nerves. Psych: Patient has a moderate kept appearance, appropriate affect, mental status attitude thought context and judgment are appropriate for age. Objective Labs Result Diagrams: 05/17/21 16:41 05/17/21 16:41 Labs: Laboratory Results - last 24 hr 05/17/21 05/17/21 05/17/21 16:30 16:30 16:41 WBC 17.1 H RBC 3.07 L Hgb 12.2 Hct 35.9 L MCV 117.1 H MCH 39.9 H MCHC 34.1 RDW 15.1 H Plt Count 223 Neut % (Auto) 81.4 H Lymph % (Auto) 8.2 L [place] % (Auto) 9.8 Eos % (Auto) 0.1 L Baso % (Auto) 0.5 Neut # (Auto) 63985 H Lymph # (Auto) 1400 [place] # (Auto) 1700 H Eos # (Auto) 0 Baso # (Auto) 100 RBC Morphology See below Macrocytosis 2+ H PT INR APTT Sodium Potassium Chloride Carbon Dioxide BUN Creatinine Estimated GFR BUN/Creatinine Ratio Glucose Lactate Calcium Magnesium Total Bilirubin GGT AST ALT Alkaline Phosphatase Total Protein Albumin Globulin Albumin/Globulin Ratio Lipase Procalcitonin Ur Bilirubin Confirm Positive H Urine RBC 1-5/hpf Urine WBC 5-10/hpf H Ur Squamous Epith Cells 1-5 /hpf Amorphous Sediment 2+ Urine Bacteria Many (>30) H Ur Culture Indicated? Culture not indicate Acetaminophen SARS-CoV-2 (PCR) 05/17/21 05/17/21 05/17/21 16:41 16:41 16:41 WBC RBC Hgb Hct MCV MCH MCHC RDW Plt Count Neut % (Auto) Lymph % (Auto) [place] % (Auto) Eos % (Auto) Baso % (Auto) Neut # (Auto) Lymph # (Auto) [place] # (Auto) Eos # (Auto) Baso # (Auto) RBC Morphology Macrocytosis PT INR APTT Sodium 132 L Potassium 4.1 Chloride 95 L Carbon Dioxide 26 BUN 13 Creatinine 0.74 Estimated GFR > 60.0 BUN/Creatinine Ratio 17.6 Glucose 83 Lactate 4.2 H* Calcium 8.5 Magnesium Total Bilirubin 11.0 H GGT AST 240 H ALT 33 Alkaline Phosphatase 248 H Total Protein 7.6 Albumin 3.6 Globulin 4.0 Albumin/Globulin Ratio 0.9 L Lipase 14 L Procalcitonin 5.91 H Ur Bilirubin Confirm Urine RBC Urine WBC Ur Squamous Epith Cells Amorphous Sediment Urine Bacteria Ur Culture Indicated? Acetaminophen SARS-CoV-2 (PCR) 05/17/21 05/17/21 05/17/21 16:41 16:41 20:15 WBC RBC Hgb Hct MCV MCH MCHC RDW Plt Count Neut % (Auto) Lymph % (Auto) [place] % (Auto) Eos % (Auto) Baso % (Auto) Neut # (Auto) Lymph # (Auto) [place] # (Auto) Eos # (Auto) Baso # (Auto) RBC Morphology Macrocytosis PT 19.7 H INR 1.7 H APTT 42 H Sodium Potassium Chloride Carbon Dioxide BUN Creatinine Estimated GFR BUN/Creatinine Ratio Glucose Lactate Calcium Magnesium 1.1 L Total Bilirubin GGT 674 H AST ALT Alkaline Phosphatase Total Protein Albumin Globulin Albumin/Globulin Ratio Lipase Procalcitonin Ur Bilirubin Confirm Urine RBC Urine WBC Ur Squamous Epith Cells Amorphous Sediment Urine Bacteria Ur Culture Indicated? Acetaminophen < 10 L SARS-CoV-2 (PCR) Negative 05/17/21 21:32 WBC RBC Hgb Hct MCV MCH MCHC RDW Plt Count Neut % (Auto) Lymph % (Auto) [place] % (Auto) Eos % (Auto) Baso % (Auto) Neut # (Auto) Lymph # (Auto) [place] # (Auto) Eos # (Auto) Baso # (Auto) RBC Morphology Macrocytosis PT INR APTT Sodium Potassium Chloride Carbon Dioxide BUN Creatinine Estimated GFR BUN/Creatinine Ratio Glucose Lactate 2.3 H Calcium Magnesium Total Bilirubin GGT AST ALT Alkaline Phosphatase Total Protein Albumin Globulin Albumin/Globulin Ratio Lipase Procalcitonin Ur Bilirubin Confirm Urine RBC Urine WBC Ur Squamous Epith Cells Amorphous Sediment Urine Bacteria Ur Culture Indicated? Acetaminophen SARS-CoV-2 (PCR) Assessment & Plan Assessment & Plan narrative: Patient is a 60-year-old female Charmaine Watt who reports no medical history, medications, or surgery who never goes to the doctor. Who presented to the ED for worsening abdominal pain pressure nausea, visible icterus, and abdominal distension that is worse with movement. Patient does report a history of heavy alcohol use, smoking THC for more than 40 years, and is mildly over weight with a BMI 28.3. Patient is admitted for acute respiratory failure with hypoxia, with sepsis, hepatic injury and abdominal keisha n. 1. Acute respiratory failure with hypoxia, with sepsis, abdominal pain/Distention, and hepatic injury, in the setting of long-term alcohol and THC abuse, acute, present on admission -I suspect patient's injury is related to chronic alcohol abuse, likely cirrhosis, with secondary interabdominal infection. -monitor patient for complications of variceal hemorrhage, ascites, spontaneous bacterial peritonitis, hepatocellular carcinoma, hepatic renal syndrome, or hepatopulmonary syndrome, septic shock,acalculous cholecystitis, hepatitis, hypoalbuminemia -101?, BP 106/55 (hypotensive previous recording shows systolic of 137), HR 90, R 16, O2 saturation 92% on 2 L nasal cannula. Patient is not on O2 at home. -WBC 17.1, neutrophils 14,000, HCT 35.9, MCV 117.1. Sodium 132, chloride 95, total bili 11, AST 240, alk-phos 248, initial lactate 4.2, lipase 14, procalcitonin 5.91 -urinalysis: urine bili positive high, wbc's 5-10, bacteria many. -ABD/Pelvis CT showed Diffuse hepatic hypoattenuation with heterogeneous mottled attenuation of the liver. Findings are suggestive of moderate to severe hepatic steatosis with steatohepatitis or another diffuse infectious or inflammatory hepatocellular process. Splenomegaly, small volume pleural effusions and small volume ascites presumably related. -ABD MRI: No findings of choledocholithiasis or biliary ductal dilatation. Tiny gallstone with no findings of cholecystitis. Severe hepatic steatosis with suspected diffuse hepatocellular disease. Cirrhosis is not excluded. There is splenomegaly along with perihepatic and perisplenic ascites, along with small pleural effusions. -ABD U/S: Dense echogenic liver either reflects advanced hepatic fatty infiltration of cirrhosis. Gallbladder wall thickening, pericholecystic fluid without cholelithiasis. -Consider follow-up diagnostic imaging such as contrast CT or HIDA scan, or paracentesis. -monitor patient for complications of variceal hemorrhage, ascites, spontaneous bacterial peritonitis, hepatocellular carcinoma, hepatic renal syndrome, or hepatopulmonary syndrome, septic shock,acalculous cholecystitis, hepatitis, hypoalbuminemia -Admit to tele, vital signs q.4 hours, orthostatics q.a.m., call for respiratory rate> 30, increasing O2 requirements, systolic blood pressure <95, urinary output<100cc/hr, activity as tolerated, fall precautions, daily weights. strict I&Os, O2 as needed to maintain a SaO2>92%, -Consider: diet 2 g sodium restriction, Fluid restriction 2 L/D, CIWA protocol with seizure precautions and lorazepam p.o. or IV as needed per CIWA protocol. -Patient is alert, conversant, cooperative,and no signs of alcohol withdrawal. -Labs ordered: Daily CBC, CMP, ETOH, GGT, PT PTT, hepatitis panel, HSV, acetaminophen, phosphorus, urine and blood cultures pending -Zosyn 3.375 daily, Fluids : Sepsis protocol in the ED, NS at 150 cc/HR -MELD score & Maddrey Discriminant Function -not calculated due to normal creatinine of 0.74 -patient education provided reguarding smoking cessation 2. Overweight as evidence by BMI of 28.3, acute on chronic, present on admission -consideration will be given to dietary counseling Code status: Patient which is to be resuscitated but does not want to be intubated DNI Surrogate decision maker: Spouse COVID PCR: Negative COVID vaccination: Moderna February of 2021 DVT/VTE prophylaxis: Lovenox 40 mg and SCDs Disposition: Estimated length of stay greater than 2 midnights. I have utilized all available immediate resources to obtain, update, or review the patient's current medications. I confirmed that the patient's advanced care plan is present, Code status is documented and/or surrogate decision maker is listed in the patient's medical record.
[2021-05-18 04:51] LABS: Hematocrit 32.5 % (36-46); Lactate (Lactic Acid) 1.9 mmol/L (0.7-2.1); Mean Corpuscular HGB Conc 33.7 % (30-36); Mean Corpuscular Hemoglobin 40.3 PG (26-34); Mean Corpuscular Volume 119.6 fL (80-100); Platelet Count 184 X10^3/uL (150-400); Red Blood Cell Count 2.72 X10^6/uL (4.0-5.2); Red Cell Distribution Width 15.3 % (11.6-14.8); White Blood Cell Count 15.4 X10^3/uL (4.5-11.0)
[2021-05-18 04:53] LABS: Add Manual Diff / Slide Review YES
[2021-05-18 05:19] LABS: Acetaminophen < 10 ug/mL (10-30); Alanine Aminotransferase 28 IU/L (<35); Albumin Globulin Ratio 0.8 (1.0-2.8); Alkaline Phosphatase 186 U/L (38-126); Aspartate Aminotransferase 182 IU/L (14-36); BUN Creatinine Ratio 21.3 (6-22); Bilirubin Total 10.4 mg/dL (0.2-1.3); Blood Urea Nitrogen 17 mg/dL (7-17); Calcium 7.4 mg/dL (8.4-10.2); Carbon Dioxide 23 mmol/L (22-32); Chloride 100 mmol/L (98-107); Estimated Glomerular Filt Rate > 60.0 mL/min (>60); Ethanol (ETOH) < 10 mg/dL; Globulin 3.7 g/dL (1.7-4.1); Glucose 60 mg/dL (80-110); HEMOLYSIS < 15 (0-50); Potassium 4.2 mmol/L (3.4-5.1); Sodium 132 mmol/L (137-145); Total Protein 6.7 g/dL (6.3-8.2)
[2021-05-18] MEDS: PIPERACILLIN/TAZO 3.375 GM in SODIUM CHLORIDE 0.9% 100 ML 25 ML IV ×3 (05:34→21:33)
--- NOTE | 2021-05-18 06:33 | PC.NURSE ---
Pt to room 225 via stretcher. Able to transfer self to br and then to bed with sba. Pt is alert and oriented x 3. Admits to 4 drinks daily and more on the weekends. Does not smoke cigarettes but does smoke cannabis daily. Denies nausea or pain at this time. Bed alarm on for safety. SCD's on and running. IVF/ABX infusing as ordered. CIWA 0 at this time. Rails padded per protocol. Reminded Pt to call for assistance as needed and to wait for assistance before getting up from bed. Pt is NPO at this time. Mouth swabs given for comfort.
[2021-05-18 07:01] LABS: Macrocytosis 3+; Neutrophils Absolute Manual 13398 /uL (3000-5900); Total Cells Counted 100
[2021-05-18] MEDS: ENOXAPARIN 40 MG/0.4 ML SYRINGE SUBCUT (09:04)
[2021-05-18] MEDS: ONDANSETRON 4 MG/2 ML INJ IV (13:34)
--- NOTE | 2021-05-18 13:44 | PC.NURSE ---
Addendum entered by Shellie Rousseau R.N. 05/18/21 14:17: Reassessed Pt who states her chest pain and nausea have resolved after Zofran. Original Note: Pt is resting in bed with Spouse at the bedside. Pt c/o nausea-Zofran given at 1334. Pt c/o pain to abdomen 03/27 and pain to right chest 2-11/25. Notified Dr. Blake who said she would see her shortly.
--- NOTE | 2021-05-18 15:09 | DI.NM.S_ITS ---
PROCEDURE: NM HIDA WITH CCK PHARMACEUTICAL: 5.5 mCi Tc-99m mebrofenin IV; 1.4 mcg CCK IV. INDICATIONS: r/o acalculous cholecystits TECHNIQUE: Following intravenous administration of Tc-99m mebrofenin, sequential anterior abdominal images were obtained. To evaluate the contractile response of the gallbladder in response to Cholecystokinin (CCK), sincalide (0.02 ?g/kg) was administered by slow intravenous infusion approximately 60 minutes after the administration of the radiopharmaceutical. Sequential imaging was continued for 30 minutes after the start of CCK infusion. Gallbladder ejection fraction was calculated. COMPARISON: [facility], MR, MR ABDOMEN WO CON, 05/17/2021, 18:26. [facility], US, US ABDOMEN LIMITED, 05/17/2021, 16:53. [facility], CT, CT ABDOMEN PELVIS W CON, 05/17/2021, 19:36. FINDINGS: Biliary scan: There is normal tracer uptake and excretion by the liver. There is normal visualization of the intrahepatic ducts, common bile duct, and gallbladder. There is normal tracer transit into the duodenum. CCK stimulation: There is normal contractile response of the gallbladder to CCK infusion. The calculated gallbladder ejection fraction is 82%; normal values are above 35%. Liver appears mildly enlarged. There is delayed tracer clearance from liver. It has been shown that any patient abdominal pain after CCK administration is related to the rate of CCK injection, rather than to any underlying gallbladder disease (Clinical Nuclear Medicine 2012; 37: 63-70. Journal of Nuclear Medicine 2014; 55: 1-9). IMPRESSION: 1. Normal filling of gallbladder. No evidence for acute cholecystitis. 2. Normal contractile response of gallbladder to CCK stimulation. 3. Liver is mildly enlarged with mildly delayed hepatic clearance of tracer. The findings likely related to hepatitis. Recommend clinical correlation Dictated by: Wisam Shields M.D. on 05/19/2021 at 10:08 Approved by: Wisam Shields M.D. on 05/19/2021 at 10:19
[2021-05-18] MEDS: LACTATED RINGERS 1,000 ML 100 ML IV (15:15)
--- NOTE | 2021-05-18 16:11 | CM.DANOTE ---
Discharge Planning/Care Management DCP: assessment: case received, EMR reviewed and met now with pt. Introduced self and role. Pt is a 60 year old female who admitted last night to care of hospitalist team. Dr. Blake has just spoken with her but her note is not yet available. Pt says Dr. Blake said she would be in the hospital for a couple more days. Pt confirms she recently established with PCP: Sadia Muse. Payer: [employer] Admission status: INPT: confirmed by UR RN Kamlesh. Pt admits with dx of acute respiratory failure with hypoxia and hepatic injury in the setting of heavy and daily vodka use. Pt admits to same but says her most recent drink was on Sat 05/15. She says she has never been in treatment, I can function even though I drink so much but is considering changing her pattern. She says I think I can do this by myself. Did caution her that with her heavy history use this may well be dangerous. Pt does readily admit the heavy alcohol use has affected her overal health greatly. pt would benefit from an [employer] CD assessment and discussion of treatment options as POC proceeds if this is available. DCP will continue to follow. Advanced directive, confirm from FAMILY Start: 05/18/21 06:21 Freq: Q24H Status: Complete Protocol: Document 05/18/21 06:20 CM (Rec: 05/18/21 06:33 CM [id number]) Advance Directive, confirm on record Time 06:33 Person contacted Pt-does not have one. Copy received No Advanced directive available on record No CM Discharge Assessment Start: 05/18/21 16:10 Freq: Status: Active Protocol: Document 05/18/21 16:10 ITV (Rec: 05/18/21 16:11 ITV [id number]) Discharge Planning Assessment Advance Directives? No History Provided By Patient,Medical Record Prior Living Arrangements House Comment with Household Members spouse Independent with ADL's Yes Is patient alert and oriented? Yes Whiteboard Updated in Patient Room with Yes name and ext. # of [employer] Winder
[2021-05-18] MEDS: MAGNESIUM SULFATE 2 GM/50 ML PIGGYBACK IV (16:16)
--- NOTE | 2021-05-18 19:06 | PM.PN.1 ---
Subjective Subjective Interval history: The patient is a 60-year-old female admitted to the hospital with acute hepatitis, abdominal pain, probable alcoholic cirrhosis, following a period of binge drinking. Patient reports continued abdominal pain. She is tearful. She admits to drinking at least 4 drinks per night. She denies any history of alcohol withdrawal. Exam Vital Signs (past 8 hours): - 05/18/21 11:48 05/18/21 12:00 05/18/21 14:00 Temperature 98.8 F Pulse Rate 84 Pulse Rate [Orthostatic Lying] Pulse Rate [Orthostatic Sitting] Pulse Rate [Orthostatic Standing] Respiratory Rate 17 Blood Pressure 94/60 Blood Pressure [Orthostatic Lying] Blood Pressure [Orthostatic Sitting] Blood Pressure [Orthostatic Standing] Pulse Oximetry 95 92 94 05/18/21 14:58 05/18/21 16:00 05/18/21 16:40 Temperature 98.1 F Pulse Rate Pulse Rate [Orthostatic Lying] 83 Pulse Rate [Orthostatic Sitting] 84 Pulse Rate [Orthostatic Standing] 83 Respiratory Rate 17 Blood Pressure Blood Pressure [Orthostatic Lying] 110/60 Blood Pressure [Orthostatic Sitting] 113/64 Blood Pressure [Orthostatic Standing] 110/62 Pulse Oximetry 94 95 05/18/21 18:00 Temperature Pulse Rate Pulse Rate [Orthostatic Lying] Pulse Rate [Orthostatic Sitting] Pulse Rate [Orthostatic Standing] Respiratory Rate Blood Pressure Blood Pressure [Orthostatic Lying] Blood Pressure [Orthostatic Sitting] Blood Pressure [Orthostatic Standing] Pulse Oximetry 95 Oxygen Delivery Method Room Air Oxygen Flow Rate 0 Narrative Exam Narrative: Jaundiced ill-appearing female lying in bed Eyes Other: Jaundice Resp Other: Lungs clear to auscultation Cardio Other: Cardiac exam: Regular rate and rhythm normal S1-S2 GI Other: Abdomen: Soft, diffusely tender, spleen is palpable, liver edge not palpated, patient is tearful, no board-like rigidity, no rebound tenderness Skin Other: No edema Objective Labs Result Diagrams: 05/18/21 03:55 05/18/21 03:55 Labs: Laboratory Results - last 24 hr 05/17/21 05/17/21 05/17/21 16:41 16:41 16:41 WBC RBC Hgb Hct MCV MCH MCHC RDW Plt Count Neut % (Auto) Lymph % (Auto) [place] % (Auto) Eos % (Auto) Baso % (Auto) Lymph # (Auto) [place] # (Auto) Baso # (Auto) Total Counted Seg Neutrophils % Lymphocytes % (Manual) Atypical Lymphs % Monocytes % (Manual) Neutrophils # (Manual) RBC Morphology Macrocytosis PT INR APTT Sodium Potassium Chloride Carbon Dioxide BUN Creatinine Estimated GFR BUN/Creatinine Ratio Glucose Lactate 4.2 H* Calcium Phosphorus Magnesium 1.1 L Total Bilirubin GGT 674 H AST ALT Alkaline Phosphatase Total Protein Albumin Globulin Albumin/Globulin Ratio Procalcitonin 5.91 H Acetaminophen < 10 L Ethyl Alcohol SARS-CoV-2 (PCR) 05/17/21 05/17/21 05/17/21 16:41 20:15 21:32 WBC RBC Hgb Hct MCV MCH MCHC RDW Plt Count Neut % (Auto) Lymph % (Auto) [place] % (Auto) Eos % (Auto) Baso % (Auto) Lymph # (Auto) [place] # (Auto) Baso # (Auto) Total Counted Seg Neutrophils % Lymphocytes % (Manual) Atypical Lymphs % Monocytes % (Manual) Neutrophils # (Manual) RBC Morphology Macrocytosis PT 19.7 H INR 1.7 H APTT 42 H Sodium Potassium Chloride Carbon Dioxide BUN Creatinine Estimated GFR BUN/Creatinine Ratio Glucose Lactate 2.3 H Calcium Phosphorus Magnesium Total Bilirubin GGT AST ALT Alkaline Phosphatase Total Protein Albumin Globulin Albumin/Globulin Ratio Procalcitonin Acetaminophen Ethyl Alcohol SARS-CoV-2 (PCR) Negative 05/18/21 05/18/21 05/18/21 03:55 03:55 03:55 WBC 15.4 H RBC 2.72 L Hgb 11.0 L Hct 32.5 L MCV 119.6 H MCH 40.3 H MCHC 33.7 RDW 15.3 H Plt Count 184 Neut % (Auto) Not Reportable Lymph % (Auto) Not Reportable [place] % (Auto) Not Reportable Eos % (Auto) Not Reportable Baso % (Auto) Not Reportable Lymph # (Auto) Not Reportable [place] # (Auto) Not Reportable Baso # (Auto) Not Reportable Total Counted 100 Seg Neutrophils % 87.0 H Lymphocytes % (Manual) 8.0 L Atypical Lymphs % 2.0 H Monocytes % (Manual) 3.0 Neutrophils # (Manual) 33549 H RBC Morphology Not Reportable Macrocytosis 3+ H PT INR APTT Sodium 132 L Potassium 4.2 Chloride 100 Carbon Dioxide 23 BUN 17 Creatinine 0.80 Estimated GFR > 60.0 BUN/Creatinine Ratio 21.3 Glucose 60 L Lactate 1.9 Calcium 7.4 L Phosphorus Magnesium Total Bilirubin 10.4 H GGT AST 182 H ALT 28 Alkaline Phosphatase 186 H Total Protein 6.7 Albumin 3.0 L Globulin 3.7 Albumin/Globulin Ratio 0.8 L Procalcitonin Acetaminophen < 10 L Ethyl Alcohol < 10 SARS-CoV-2 (PCR) 05/18/21 03:55 WBC RBC Hgb Hct MCV MCH MCHC RDW Plt Count Neut % (Auto) Lymph % (Auto) [place] % (Auto) Eos % (Auto) Baso % (Auto) Lymph # (Auto) [place] # (Auto) Baso # (Auto) Total Counted Seg Neutrophils % Lymphocytes % (Manual) Atypical Lymphs % Monocytes % (Manual) Neutrophils # (Manual) RBC Morphology Macrocytosis PT INR APTT Sodium Potassium Chloride Carbon Dioxide BUN Creatinine Estimated GFR BUN/Creatinine Ratio Glucose Lactate Calcium Phosphorus 3.0 Magnesium Total Bilirubin GGT AST ALT Alkaline Phosphatase Total Protein Albumin Globulin Albumin/Globulin Ratio Procalcitonin Acetaminophen Ethyl Alcohol SARS-CoV-2 (PCR) [facility] Medical History (System 05/18/21 @ 08:06 by Lady Kimi Escalante) Alcohol abuse Herniated lumbar disc without myelopathy No significant past medical history Tetrahydrocannabinol (THC) use disorder, mild, abuse Surgical History (System 05/18/21 @ 08:06 by Lady Kimi Escalante) No history of previous surgery Family History (System 05/18/21 @ 08:06 by Lady Kimi Escalante) Mother Multiple sclerosis Father Heart disease Kidney failure Social History (System 05/18/21 @ 08:06 by Lady Kimi Escalante) household members: spouse Smoking Status: Current some day smoker Assessment & Plan Assessment & Plan narrative: 60-year-old female admitted to the hospital for abdominal pain and acute hepatitis, most likely acute alcoholic hepatitis -patient was reportedly a significant history of drinking she admits to for vodka drinks per Night and possibly more most recent - -elevated bilirubin of 11.1 now 10.1, highly suggestive of acute alcoholic hepatitis -abdominal ultrasound reveals minimal ascites, -CT of the abdomen and pelvis reveals diffuse hepatic hypoattenuation with mottled attenuation of the liver. This is suggestive of severe hepatic steatosis -gallbladder wall thickened, with pericholecystic fluid without cholelithiasis, follow-up HIDA scan recommended -meld score calculated at 24 -will continue IV hydration, pain medication, NPO after 2:00 a.m. for HIDA scan in the morning -repeat labs in am/ HIDA scan tomorrow Alcohol Dependence -no evidence of alcohol withdrawal -continue CIWA and treat accordingly Futher recommendations pending results of above Quality VTE Deep Vein Thrombosis/Pulmonary Embolism Present on Admission: No
[2021-05-18] MEDS: HYDROMORPHONE 0.5 MG INJ IV (22:38)
--- NOTE | 2021-05-18 22:51 | PC.NURSE ---
Evening shift note. I assumed responsibility for pt at 1900. pt AO and receptive to care. pt LR @100 to right AC and intermittent ABX. Ascites and bloating to ABD with 4-6/10 pain during shift, 0.5mg IV Dilaudid administered at 2245 for 4.5/10 pain. in room at start of shift and has since left. Tele: NSR. CIWA 3. Left ankle draining serous fluid, placed 5x5 silicone border foam. +2 pitting edema to bilateral LE. SBA in room but pt spontaneous and impulsive; bed alarm on. pt found in room roaming, pulling on IV, and messing with linen, when asked pt responded with I didn't want to get in your way. Waffle cushion provided for buttock/coccyx pain. pt also called [employer] radio operator to report a trauma. When I responded and asked pt started rambling about a phone call with her friend who had a trauma with a surgery, then apologized for any trouble. pt to be NPO at 0400 and no pain medications after 0200.
[2021-05-19] VITALS (15 sets, daily range): BP systolic 95–134; BP diastolic 55–71; PULSE 79–89; RESP 12–20; TEMP 36.2–37.2; O2SAT 91–98
--- NOTE | 2021-05-19 01:59 | PC.NURSE ---
NOC Shift] Assumed care of Pt @ 2300, Pt had been getting progressively more anxious following spouses exit, impulsive and BA active, Pt has mad multiple attempts at getting OOB without assistance. Reinforced staff assist, especially after rec. nracotics. Pt verbalizing understanding but continues to set alarm off with impulsive exits from bed. 1:1 AGRISCIENCE TECHNOLOGY INSTRUCTOR for supervision @ 0000, Pt cooperative and pleasant, just impulsive. Showing some signs of confusion and forgetfulness. Possibly worse after narcotic use. WCTM, Pt is resting quietly in bed at this time, PIV infusing, and no s/sx pain or discomfort. Call light in reach and 1:1 supervision from AGRISCIENCE TECHNOLOGY INSTRUCTOR. No appearance of ABD pain at present.
[2021-05-19] MEDS: LACTATED RINGERS 1,000 ML 100 ML IV ×2 (03:16→15:01)
[2021-05-19 04:48] LABS: INR 1.6 (0.9-1.3); Prothrombin Time 18.1 SECONDS (10.1-12.7)
[2021-05-19 04:49] LABS: Basophils Absolute Auto 100 /uL (0-100); Basophils Percent Auto 0.4 % (0-2); Eosinophils Absolute Auto 100 /uL (0-450); Eosinophils Percent Auto 0.7 % (2-4); Hematocrit 32.6 % (36-46); Hemoglobin 10.9 g/dL (12.0-16.0); Lymphocytes Absolute Auto 1500 /uL (1100-4500); Lymphocytes Percent Auto 12.4 % (25-40); Mean Corpuscular HGB Conc 33.5 % (30-36); Mean Corpuscular Hemoglobin 39.9 PG (26-34); Mean Corpuscular Volume 118.8 fL (80-100); Monocytes Absolute Auto 700 /uL (0-900); Monocytes Percent Auto 5.8 % (3-14); Neutrophils Absolute Auto 9400 /uL (1500-7000); Neutrophils Percent Auto 80.7 % (50-75); Platelet Count 201 X10^3/uL (150-400); Red Blood Cell Count 2.74 X10^6/uL (4.0-5.2); Red Cell Distribution Width 15.1 % (11.6-14.8); White Blood Cell Count 11.7 X10^3/uL (4.5-11.0)
[2021-05-19 04:53] LABS: Add Manual Diff / Slide Review SLIDE REVIEW
[2021-05-19 04:55] LABS: Alanine Aminotransferase 34 IU/L (<35); Albumin Globulin Ratio 0.8 (1.0-2.8); Alkaline Phosphatase 215 U/L (38-126); Aspartate Aminotransferase 215 IU/L (14-36); BUN Creatinine Ratio 24.5 (6-22); Bilirubin Total 11.3 mg/dL (0.2-1.3); Blood Urea Nitrogen 26 mg/dL (7-17); Calcium 7.4 mg/dL (8.4-10.2); Carbon Dioxide 24 mmol/L (22-32); Chloride 99 mmol/L (98-107); Estimated Glomerular Filt Rate 52.7 mL/min (>60); Globulin 3.6 g/dL (1.7-4.1); Glucose 78 mg/dL (80-110); HEMOLYSIS < 15 (0-50); Potassium 4.1 mmol/L (3.4-5.1); Sodium 130 mmol/L (137-145); Total Protein 6.6 g/dL (6.3-8.2)
--- NOTE | 2021-05-19 06:36 | PC.NURSE ---
Addendum entered by Iraida Zafar R.N. 05/19/21 07:52: Add-Update to TALON Correa Re: confusion, and settling in for NOC with no further problems. No amonia level noted, no orders rec'd at this time for further labs. Original Note: NOC shift Pt has been cooperative and has not needed 1:1 supervision this shift. While impulsive, this slowed at start of shift, and she has been cooperative with all care so far. Denies pain, I'm tired Education provided re: HIDA scan later today. NPO and no pain medication this shift. SBA to BR, IVF infusing. ABD distention makes positioning for sleep challenging at time. Seizure precautions in place.
[2021-05-19 06:41] LABS: HBsAg Screen Negative (Negative); Hepatitis A Antibody IgM Negative (Negative); Hepatitis B Core Antibody IgM Negative (Negative); Hepatitis C Antibody <0.1 s/co ratio (0.0-0.9)
[2021-05-19 07:16] LABS: Macrocytosis 3+
[2021-05-19] MEDS: ENOXAPARIN 40 MG/0.4 ML SYRINGE SUBCUT (10:03)
[2021-05-19] MEDS: ONDANSETRON 4 MG/2 ML INJ IV (10:03)
[2021-05-19] MEDS: LORazepam 2 MG/ML INJ IV ×3 (11:05→23:38)
[2021-05-19] MEDS: PIPERACILLIN/TAZO 3.375 GM in SODIUM CHLORIDE 0.9% 100 ML 25 ML IV (13:21)
--- NOTE | 2021-05-19 14:34 | P.PN_ITS ---
Subjective Subjective Interval history: The patient is a 60-year-old female admitted to the hospital for acute abdominal pain. She has a history of significant alcohol use and was found to have acute hepatitis. It is felt the patient has acute alcoholic hepatitis as her hepatitis serologies are negative. This morning the patient developed agitation, confusion, she was found to have a CIWA score of 10. Ankush london continues to complain of abdominal pain Exam Vital Signs (past 8 hours): - 05/19/21 08:00 05/19/21 11:25 05/19/21 12:00 Temperature 97.1 F L 97.5 F L Pulse Rate 83 81 81 Pulse Rate [Orthostatic Lying] 83 Pulse Rate [Orthostatic Sitting] 82 Pulse Rate [Orthostatic Standing] 82 Respiratory Rate 18 12 17 Blood Pressure 123/68 107/64 107/64 Blood Pressure [Orthostatic Lying] 123/68 Blood Pressure [Orthostatic Sitting] 116/63 Blood Pressure [Orthostatic Standing] 121/61 Pulse Oximetry 95 94 Oxygen Delivery Method Room Air Oxygen Flow Rate 0 Narrative Exam Narrative: Confused jaundiced female lying in bed uncomfortable Eyes Other: Jaundice Resp Other: Lungs clear to auscultation Cardio Other: Cardiac exam: Regular rate rhythm normal S1-S2 GI Other: Abdomen: Mildly distended, tender to palpation, liver edge is palpable Extrem Other: Jaundice Objective Labs Result Diagrams: 05/19/21 04:00 05/19/21 04:00 Labs: Laboratory Results - last 24 hr 05/18/21 05/19/21 05/19/21 03:55 04:00 04:00 WBC 11.7 H RBC 2.74 L Hgb 10.9 L Hct 32.6 L MCV 118.8 H MCH 39.9 H MCHC 33.5 RDW 15.1 H Plt Count 201 Neut % (Auto) 80.7 H Lymph % (Auto) 12.4 L [place] % (Auto) 5.8 Eos % (Auto) 0.7 L Baso % (Auto) 0.4 Neut # (Auto) 9400 H Lymph # (Auto) 1500 [place] # (Auto) 700 Eos # (Auto) 100 Baso # (Auto) 100 RBC Morphology See below Macrocytosis 3+ H PT INR Sodium 130 L Potassium 4.1 Chloride 99 Carbon Dioxide 24 BUN 26 H Creatinine 1.06 H Estimated GFR 52.7 L BUN/Creatinine Ratio 24.5 H Glucose 78 L Calcium 7.4 L Total Bilirubin 11.3 H AST 215 H ALT 34 Alkaline Phosphatase 215 H Total Protein 6.6 Albumin 3.0 L Globulin 3.6 Albumin/Globulin Ratio 0.8 L Hepatitis A IgM Ab Negative Hep Bs Antigen Negative Hep B Core IgM Ab Negative Hepatitis C Antibody <0.1 Hep C Ab Signal/Cutoff Comment 05/19/21 04:00 WBC RBC Hgb Hct MCV MCH MCHC RDW Plt Count Neut % (Auto) Lymph % (Auto) [place] % (Auto) Eos % (Auto) Baso % (Auto) Neut # (Auto) Lymph # (Auto) [place] # (Auto) Eos # (Auto) Baso # (Auto) RBC Morphology Macrocytosis PT 18.1 H INR 1.6 H Sodium Potassium Chloride Carbon Dioxide BUN Creatinine Estimated GFR BUN/Creatinine Ratio Glucose Calcium Total Bilirubin AST ALT Alkaline Phosphatase Total Protein Albumin Globulin Albumin/Globulin Ratio Hepatitis A IgM Ab Hep Bs Antigen Hep B Core IgM Ab Hepatitis C Antibody Hep C Ab Signal/Cutoff [facility] Medical History (System 05/18/21 @ 08:06 by Lady Kimi Escalante) Alcohol abuse Herniated lumbar disc without myelopathy No significant past medical history Tetrahydrocannabinol (THC) use disorder, mild, abuse Surgical History (System 05/18/21 @ 08:06 by Lady Kimi Escalante) No history of previous surgery Family History (System 05/18/21 @ 08:06 by Lady Kimi Escalante) Mother Multiple sclerosis Father Heart disease Kidney failure Social History (System 05/18/21 @ 08:06 by Lady Kimi Escalante) household members: spouse Smoking Status: Current some day smoker Assessment & Plan Assessment & Plan narrative: 60-year-old female admitted to the hospital with acute abdominal pain -patient with a significant history of alcohol use -meld score of 25 -Maddrey discriminant function score of 87 -patient with acute alcoholic hepatitis -hepatitis serologies negative HIDA scan negative, CT of the abdomen and pelvis confirm severe hepato steatosis, splenomegaly noted, minimal ascites, no evidence of infection -suspect elevated white count related to acute alcoholic hepatitis and not intra-abdominal infection -patient to start on IV methylprednisolone 32 mg daily -will continue liver function test daily, anticipate 7 days of steroids will be needed prior to discontinuation Acute alcohol withdrawal with delirium tremens -continue CIWA score -will start Librium 25 mg q.6 and taper as needed -alcoholism, social work consult regarding treatment Time Spent With Patient Critical Care time: I spent a total of [] minutes of critical care time on this patient's care today; this time is exclusive of procedural time. Quality VTE Deep Vein Thrombosis/Pulmonary Embolism Present on Admission: No
[2021-05-19] MEDS: CEFAZOLIN 1 GM VIAL 2 GM IV ×2 (16:10→23:06)
[2021-05-19] MEDS: chlordiazePOXIDE 10 MG CAPSULE 30 MG PO (16:26)
--- NOTE | 2021-05-19 22:48 | PC.NURSE ---
2209 pt awoken for med pass. disoriented and stating I'm getting the hell out of here. Thrashing about and combative. LORIN garcia present with this RN. Assisted pt to commode. Attempt to reorient the pt unsuccessful. pt pulling at equipment. Attempts to calm pt unsuccessful. notified. order for Ativan now and CIWA protocol. CIWA score 11.
[2021-05-20] VITALS (11 sets, daily range): BP systolic 92–123; BP diastolic 50–69; PULSE 67–88; RESP 14–78; TEMP 36–36.7; O2SAT 92–98
[2021-05-20] MEDS: LORazepam 2 MG/ML INJ IV (00:58)
[2021-05-20] MEDS: LACTATED RINGERS 1,000 ML 100 ML IV (01:07)
--- NOTE | 2021-05-20 02:36 | PC.NURSE ---
Pt confused and delusional at beginning of shift: she believed she was in [place], with friends and desirous to leave hospital. She had previously refused to wear a hospital gown, or remove her jacket. She could not stand up safely or pivot to [facility] She was incontinent of bladder. Offgoing RN gave 2 mg IVP Ativan. Pt had a pair of scissors in her pocket and cut her telemetry lines off and her IV line. She set her BA off and was redirected and given 2 mg IVP Ativan for a CIWA of 18. The scissors were found in her bed. She stated she needed to do these things because you are trying to steal my baby. Pt was able to sleep but continued to refuse telemtry and SCDs. Was advised that patient had fallen in BR on day or evening shift. Pt could not confirm. Pt could not advise as to the wound on her L calf, said we are working on it.
[2021-05-20 05:15] LABS: Alanine Aminotransferase 38 IU/L (<35); Albumin Globulin Ratio 0.8 (1.0-2.8); Alkaline Phosphatase 224 U/L (38-126); Aspartate Aminotransferase 232 IU/L (14-36); BUN Creatinine Ratio 31.6 (6-22); Bilirubin Total 10.1 mg/dL (0.2-1.3); Blood Urea Nitrogen 25 mg/dL (7-17); Calcium 7.5 mg/dL (8.4-10.2); Carbon Dioxide 23 mmol/L (22-32); Chloride 101 mmol/L (98-107); Estimated Glomerular Filt Rate > 60.0 mL/min (>60); Globulin 3.6 g/dL (1.7-4.1); Glucose 104 mg/dL (80-110); HEMOLYSIS < 15 (0-50); Potassium 4.4 mmol/L (3.4-5.1); Sodium 132 mmol/L (137-145); Total Protein 6.6 g/dL (6.3-8.2)
[2021-05-20 05:18] LABS: Basophils Absolute Auto 0 /uL (0-100); Basophils Percent Auto 0.1 % (0-2); Eosinophils Absolute Auto 0 /uL (0-450); Eosinophils Percent Auto 0.1 % (2-4); Hematocrit 32.5 % (36-46); Hemoglobin 11.2 g/dL (12.0-16.0); Lymphocytes Absolute Auto 600 /uL (1100-4500); Lymphocytes Percent Auto 9.6 % (25-40); Mean Corpuscular HGB Conc 34.5 % (30-36); Mean Corpuscular Hemoglobin 40.8 PG (26-34); Mean Corpuscular Volume 118.5 fL (80-100); Monocytes Absolute Auto 200 /uL (0-900); Monocytes Percent Auto 2.7 % (3-14); Neutrophils Absolute Auto 5800 /uL (1500-7000); Neutrophils Percent Auto 87.5 % (50-75); Platelet Count 181 X10^3/uL (150-400); Red Blood Cell Count 2.74 X10^6/uL (4.0-5.2); Red Cell Distribution Width 14.8 % (11.6-14.8); White Blood Cell Count 6.6 X10^3/uL (4.5-11.0)
[2021-05-20 05:20] LABS: Add Manual Diff / Slide Review SLIDE REVIEW
[2021-05-20] MEDS: CEFAZOLIN 1 GM VIAL 2 GM IV ×3 (05:47→22:05)
[2021-05-20 06:43] LABS: Macrocytosis 3+
[2021-05-20] MEDS: prednisoLONE Syrup 15 MG/5 ML 40 MG PO (10:13)
[2021-05-20] MEDS: chlordiazePOXIDE 10 MG CAPSULE 30 MG PO ×3 (10:13→20:59)
[2021-05-20] MEDS: ENOXAPARIN 40 MG/0.4 ML SYRINGE SUBCUT (10:14)
--- NOTE | 2021-05-20 11:09 | CM.DPC ---
DCP: Discussed patient during team rounds. Patient will be introduced to diet today, and will be on steroids for about a month. Patient could possibly discharge tomorrow. P: DCP to continue to follow. Will check in with patient prior to discharge, to offer any resources in case she needs them. Elizabeth Weeks RN/Wood Machinist Apprentice
[2021-05-20 13:01] LABS: Ammonia (NH3) < 9 umol/L (9-30)
--- NOTE | 2021-05-20 16:54 | PC.NURSE ---
late entry/fall approx 1740 pt was SBA up to BR with STONEMASON APPRENTICE Killian Poole. Pt's spouse was in room. Per STONEMASON APPRENTICE, he waited for pt to be seated on toilet and then stepped into her room closing BR door and told pt to tell him (as he was outside of bathroom) when she was done for assist back to bed. STONEMASON APPRENTICE called out for this RN, I entered pt's room and pt states pt fell in BR attempting to put on a pull up brief. STONEMASON APPRENTICE states pt was on her bottom. pt denies hitting her head or any pain. assisted to stand by STONEMASON APPRENTICE prior to this RN's arrival and was visualized by this RN ambulating back to bed from BR without difficulty. Coordinator notified of event and QMM report filed.
--- NOTE | 2021-05-20 17:22 | PM.PN.1 ---
Subjective Subjective Date Patient Seen: 05/20/21 Time Patient Seen: 11:30 Interval history: The patient is a 60-year-old female admitted to the hospital for acute alcoholic hepatitis. Her abdominal pain is improved today. Denies nausea or vomiting. Still confused, ammonia level <10, likely secondary to alcohol withdrawal at this time. Mild tremulousness today. Exam Vital Signs (past 8 hours): - 05/20/21 10:34 05/20/21 14:00 05/20/21 16:00 Temperature 97.1 F L 98.0 F 97.4 F L Pulse Rate 79 67 78 Pulse Rate [Orthostatic Lying] 67 Pulse Rate [Orthostatic Sitting] 87 Pulse Rate [Orthostatic Standing] 88 Respiratory Rate 19 18 78 H Blood Pressure 123/69 103/61 98/57 L Blood Pressure [Orthostatic Lying] 103/61 Blood Pressure [Orthostatic Sitting] 103/59 L Blood Pressure [Orthostatic Standing] 116/59 L Pulse Oximetry 95 93 95 05/20/21 17:00 Temperature Pulse Rate Pulse Rate [Orthostatic Lying] Pulse Rate [Orthostatic Sitting] Pulse Rate [Orthostatic Standing] Respiratory Rate Blood Pressure Blood Pressure [Orthostatic Lying] Blood Pressure [Orthostatic Sitting] Blood Pressure [Orthostatic Standing] Pulse Oximetry 98 Oxygen Delivery Method Room Air Oxygen Flow Rate 0 Narrative Exam Narrative: GENERAL APPEARANCE: Well developed but somewhat chronically appearing female appears older than stated age but in no acute distress. Falls asleep easily. SKIN: Inspection of the skin reveals no rashes, ulcerations or petechiae. She is jaundiced. HEENT: Normocephalic atraumatic, extraocular muscles are intact, oropharynx is clear and mucous membranes are moist, neck is supple without adenopathy. Scleral icterus present. NECK: Supple and symmetric. There was no thyroid enlargement, and no tenderness, or masses were felt. CHEST: Normal AP diameter and normal contour without any kyphoscoliosis. LUNGS: Auscultation of the lungs revealed no wheezes, rhonchi, or rales. CARDIOVASCULAR: There was a regular rate and rhythm without any murmurs, gallops, rubs. Peripheral pulses were 2+ and symmetric. ABDOMEN: Soft, mild tenderness RUQ, minimal distension today. Normal bowel sounds. MUSCULOSKELETAL: There was no tenderness or effusions noted. Muscle strength and tone were normal. EXTREMITIES: No cyanosis, clubbing. There is 1+ edema bilateral lower extremities. NEUROLOGIC: Alert and oriented x1-2, mumbles making it difficult to assess orientation. somnolent but no focal neurological deficits. Objective Labs Result Diagrams: 05/20/21 04:10 05/20/21 04:10 Labs: Laboratory Results - last 24 hr 05/20/21 05/20/21 05/20/21 04:10 04:10 12:40 WBC 6.6 RBC 2.74 L Hgb 11.2 L Hct 32.5 L MCV 118.5 H MCH 40.8 H MCHC 34.5 RDW 14.8 Plt Count 181 Neut % (Auto) 87.5 H Lymph % (Auto) 9.6 L [place] % (Auto) 2.7 L Eos % (Auto) 0.1 L Baso % (Auto) 0.1 Neut # (Auto) 5800 Lymph # (Auto) 600 L [place] # (Auto) 200 Eos # (Auto) 0 Baso # (Auto) 0 RBC Morphology See below Macrocytosis 3+ H Sodium 132 L Potassium 4.4 Chloride 101 Carbon Dioxide 23 BUN 25 H Creatinine 0.79 Estimated GFR > 60.0 BUN/Creatinine Ratio 31.6 H Glucose 104 Calcium 7.5 L Total Bilirubin 10.1 H AST 232 H ALT 38 H Alkaline Phosphatase 224 H Ammonia < 9 L Total Protein 6.6 Albumin 3.0 L Globulin 3.6 Albumin/Globulin Ratio 0.8 L [facility] Medical History (System 05/18/21 @ 08:06 by Lady Kimi Escalante) Alcohol abuse Herniated lumbar disc without myelopathy No significant past medical history Tetrahydrocannabinol (THC) use disorder, mild, abuse Surgical History (System 05/18/21 @ 08:06 by Lady Kimi Escalante) No history of previous surgery Family History (System 05/18/21 @ 08:06 by Lady Kimi Escalante) Mother Multiple sclerosis Father Heart disease Kidney failure Social History (System 05/18/21 @ 08:06 by Lady Kimi Escalante) household members: spouse Smoking Status: Current some day smoker Assessment & Plan Assessment & Plan narrative: 1. Alcoholic hepatitis -patient with a significant history of [facility] use [facility] -hepatitis serologies negative HIDA scan negative, CT of the abdomen and pelvis confirm severe hepato steatosis, splenomegaly noted, minimal ascites, no evidence of infection -suspect elevated white count related to acute alcoholic hepatitis and not intra-abdominal infection, not enough fluid for paracentesis -patient initilally given methylprednisolone 32 mg, transitioned today to prednisolone 40 mg for alcoholic hepatitis treatment. Continue to follow labs to assess response and recalculate DF in the near future. -will continue liver function test daily, treatment with prednisolone is for 1 week initially, if improvement continue out to 4 weeks and follow up as an outpatient. 2. Acute alcohol withdrawal with delirium tremens -continue CIWA protocol -started on Librium 25 mg q.6 and taper as needed -alcoholism, social work consult regarding treatment Code:?Patient which is to be resuscitated but does?not want to be intubated DNI Surrogate decision maker: Spouse COVID PCR:? Negative COVID vaccination:? Moderna February of 2021 DVT/VTE prophylaxis:? Lovenox 40 mg Disposition:?probably home, timing unclear at this time, will depend on response. I have utilized all available immediate resources to obtain, update, or review the patient's current medications. I confirmed that the patient's advanced care plan is present, Code status is documented and/or surrogate decision maker is listed in the patient's medical record. ? Time Spent With Patient Critical Care time: I spent a total of [] minutes of critical care time on this patient's care today; this time is exclusive of procedural time. Quality VTE Deep Vein Thrombosis/Pulmonary Embolism Present on Admission: No
[2021-05-20] MEDS: SODIUM CHLORIDE 0.9% FLUSH 10 ML IV (22:20)
[2021-05-21] VITALS (10 sets, daily range): BP systolic 106–128; BP diastolic 60–70; PULSE 65–90; RESP 16–18; TEMP 35.9–36.6; O2SAT 92–97
--- NOTE | 2021-05-21 05:57 | PC.NURSE ---
0500- Bed alarm ringing. Found patient attempting to get oob. Incontinent of bowel and bladder. Patient cleaned and bed linens changed. Patient reoriented to room and hospital. Patient denies pain. Vitals wnl. Stool and urine bilious.
[2021-05-21] MEDS: ENOXAPARIN 40 MG/0.4 ML SYRINGE SUBCUT (11:41)
[2021-05-21] MEDS: chlordiazePOXIDE 10 MG CAPSULE 30 MG PO (11:41)
[2021-05-21] MEDS: prednisoLONE Syrup 15 MG/5 ML 40 MG PO (11:42)
[2021-05-21 13:39] LABS: Alanine Aminotransferase 39 IU/L (<35); Albumin 3.2 g/dL (3.5-5.0); Albumin Globulin Ratio 0.8 (1.0-2.8); Alkaline Phosphatase 235 U/L (38-126); Aspartate Aminotransferase 251 IU/L (14-36); BUN Creatinine Ratio 35.6 (6-22); Bilirubin Total 10.2 mg/dL (0.2-1.3); Blood Urea Nitrogen 26 mg/dL (7-17); Calcium 7.9 mg/dL (8.4-10.2); Carbon Dioxide 20 mmol/L (22-32); Chloride 101 mmol/L (98-107); Estimated Glomerular Filt Rate > 60.0 mL/min (>60); Glucose 115 mg/dL (80-110); Potassium 4.7 mmol/L (3.4-5.1); Sodium 133 mmol/L (137-145); Total Protein 7.2 g/dL (6.3-8.2)
[2021-05-21 13:44] LABS: HEMOLYSIS 51 (0-50)
--- NOTE | 2021-05-21 15:17 | P.PN_ITS ---
Subjective Subjective Date Patient Seen: 05/21/21 Time Patient Seen: 15:17 Interval history: The patient is a 60-year-old female admitted to the hospital for acute alcoholic hepatitis. Her abdominal pain is improved today. Denies nausea or vomiting. confusion is improving. no tremors today. Exam Vital Signs (past 8 hours): - 05/21/21 08:00 05/21/21 08:37 05/21/21 12:00 Temperature 97.8 F 97.9 F Pulse Rate 90 67 Pulse Rate [Orthostatic Lying] 67 Pulse Rate [Orthostatic Sitting] 66 Pulse Rate [Orthostatic Standing] 65 Respiratory Rate 16 17 Blood Pressure 109/60 113/69 Blood Pressure [Orthostatic Lying] 110/63 Blood Pressure [Orthostatic Sitting] 113/69 Blood Pressure [Orthostatic Standing] 111/63 Pulse Oximetry 96 94 97 Oxygen Delivery Method Room Air Oxygen Flow Rate 0 Narrative Exam Narrative: GENERAL APPEARANCE: Well developed but somewhat chronically appearing female appears older than stated age but in no acute distress.? Falls asleep easily. SKIN: Inspection of the skin reveals no rashes, ulcerations or petechiae. She is jaundiced. HEENT:? Normocephalic atraumatic, extraocular muscles are intact, oropharynx is clear and mucous membranes are moist, neck is supple without adenopathy. Scleral icterus present. NECK: Supple and symmetric. There was no thyroid enlargement, and no tenderness, or masses were felt. CHEST: Normal AP diameter and normal contour without any kyphoscoliosis. LUNGS: Auscultation of the lungs revealed no wheezes, rhonchi, or rales. CARDIOVASCULAR: There was a regular rate and rhythm without any murmurs, gal lops, rubs. Peripheral pulses were 2+ and symmetric. ABDOMEN: Soft, mild tenderness RUQ, minimal distension today. Normal bowel sounds. MUSCULOSKELETAL: There was no tenderness or effusions noted. Muscle strength and tone were normal. EXTREMITIES: No cyanosis, clubbing. There is 1+ edema bilateral lower extremities. NEUROLOGIC: Alert and oriented x3. somnolent but no focal neurological deficits. Objective Labs Result Diagrams: 05/20/21 04:10 05/21/21 12:40 Labs: Laboratory Results - last 24 hr 05/21/21 12:40 Sodium 133 L Potassium 4.7 Chloride 101 Carbon Dioxide 20 L BUN 26 H Creatinine 0.73 Estimated GFR > 60.0 BUN/Creatinine Ratio 35.6 H Glucose 115 H Calcium 7.9 L Total Bilirubin 10.2 H AST 251 H ALT 39 H Alkaline Phosphatase 235 H Total Protein 7.2 Albumin 3.2 L Globulin 4.0 Albumin/Globulin Ratio 0.8 L [facility] Medical History Alcohol abuse Herniated lumbar disc without myelopathy No significant past medical history Tetrahydrocannabinol (THC) use disorder, mild, abuse Surgical History No history of previous surgery Family History Mother Multiple sclerosis Father Heart disease Kidney failure Social History household members: spouse Smoking Status: Current some day smoker Assessment & Plan Assessment & Plan narrative: 1. Alcoholic hepatitis -patient with a significant history of alcohol use -Maddrey discriminant function score of 87 -hepatitis serologies negative HIDA scan negative, CT of the abdomen and pelvis confirm severe hepato steatosis, splenomegaly noted, minimal ascites, no evidence of infection -suspect elevated white count related to acute alcoholic hepatitis and not intra-abdominal infection, not enough fluid for paracentesis -patient initilally given methylprednisolone 32 mg, transitioned today to prednisolone 40 mg for alcoholic hepatitis treatment. Continue to follow labs to assess response and recalculate DF in the near future. -will continue liver function test daily, treatment with prednisolone is for 1 week initially, if improvement continue out to 4 weeks and follow up as an outpatient. 2. Acute alcohol withdrawal with delirium tremens -continue CIWA protocol -started on Librium 30 mg q.6. will stop today. -alcoholism, social work consult regarding treatment Code:?Patient which is to be resuscitated but does?not want to be intubated DNI Surrogate decision maker: Spouse COVID PCR:? Negative COVID vaccination:? Moderna February of 2021 DVT/VTE prophylaxis:? Lovenox 40 mg Disposition:?probably home, timing unclear at this time, will depend on response. I have utilized all available immediate resources to obtain, update, or review the patient's current medications. I confirmed that the patient's advanced care plan is present, Code status is documented and/or surrogate decision maker is listed in the patient's medical record. Time Spent With Patient Critical Care time: I spent a total of [] minutes of critical care time on this patient's care today; this time is exclusive of procedural time. Quality VTE Deep Vein Thrombosis/Pulmonary Embolism Present on Admission: No
[2021-05-22] VITALS (7 sets, daily range): BP systolic 111–118; BP diastolic 59–67; PULSE 65–69; RESP 17–18; TEMP 36.3–36.6; O2SAT 91–96
[2021-05-22 05:17] LABS: Add Manual Diff / Slide Review NO; Basophils Absolute Auto 0 /uL (0-100); Basophils Percent Auto 0.3 % (0-2); Eosinophils Absolute Auto 0 /uL (0-450); Eosinophils Percent Auto 0.1 % (2-4); Hemoglobin 11.5 g/dL (12.0-16.0); Lymphocytes Absolute Auto 900 /uL (1100-4500); Lymphocytes Percent Auto 8.4 % (25-40); Mean Corpuscular HGB Conc 34.8 % (30-36); Mean Corpuscular Hemoglobin 40.6 PG (26-34); Mean Corpuscular Volume 116.5 fL (80-100); Monocytes Absolute Auto 800 /uL (0-900); Monocytes Percent Auto 6.9 % (3-14); Neutrophils Absolute Auto 9400 /uL (1500-7000); Neutrophils Percent Auto 84.3 % (50-75); Platelet Count 197 X10^3/uL (150-400); Red Blood Cell Count 2.83 X10^6/uL (4.0-5.2); Red Cell Distribution Width 14.9 % (11.6-14.8); White Blood Cell Count 11.1 X10^3/uL (4.5-11.0)
[2021-05-22 05:24] LABS: Alanine Aminotransferase 54 IU/L (<35); Albumin Globulin Ratio 0.8 (1.0-2.8); Alkaline Phosphatase 277 U/L (38-126); Aspartate Aminotransferase 321 IU/L (14-36); BUN Creatinine Ratio 33.9 (6-22); Bilirubin Total 7.3 mg/dL (0.2-1.3); Blood Urea Nitrogen 19 mg/dL (7-17); Calcium 8.2 mg/dL (8.4-10.2); Carbon Dioxide 28 mmol/L (22-32); Chloride 103 mmol/L (98-107); Estimated Glomerular Filt Rate > 60.0 mL/min (>60); Globulin 3.6 g/dL (1.7-4.1); Glucose 117 mg/dL (80-110); HEMOLYSIS < 15 (0-50); Magnesium 2.3 mg/dL (1.6-2.3); Potassium 4.1 mmol/L (3.4-5.1); Sodium 135 mmol/L (137-145); Total Protein 6.6 g/dL (6.3-8.2)
[2021-05-22 05:37] LABS: HSV 1 DNA Negative (Negative); HSV 2 DNA Negative (Negative)
[2021-05-22 06:11] LABS: Macrocytosis 3+
[2021-05-22] MEDS: prednisoLONE Syrup 15 MG/5 ML 40 MG PO (09:26)
[2021-05-22] MEDS: ENOXAPARIN 40 MG/0.4 ML SYRINGE SUBCUT (09:26)
--- NOTE | 2021-05-22 11:40 | PT.IIE ---
Current Diagnoses Alcoholic hepatitis without ascites (05/17/21) Medical History (Last Reviewed 05/21/21 @ 15:21 by Erick Best DO) Alcohol abuse Herniated lumbar disc without myelopathy No significant past medical history Tetrahydrocannabinol (THC) use disorder, mild, abuse Physical Therapy Inpatient Evaluation/Re-Eval M1 PT/OT-IP Prior Functional Status Start: 05/22/21 13:46 Freq: NEEDED Status: Active Protocol: Document 05/22/21 11:40 AB (Rec: 05/22/21 14:00 AB [id number]) Medical Review Prior Functional Status Medical History Reviewed Yes Communication able to make needs known Mobility and Gait pt stated that she is independent with all mobilities and ambulation without AD Social History Household Members spouse Living Arrangements House Number of Floors (Floors) One Floor Number of Stairs To Enter/Railing? 2 steps B rails to enter Home Environment Standard Height Toilet,Walk in Shower Home Equipment Hand Held Shower M2 PT-IP Current Condition Start: 05/22/21 13:46 Freq: NEEDED Status: Active Protocol: Document 05/22/21 11:40 AB (Rec: 05/22/21 14:00 AB [id number]) Physical Therapy Current Condition Current Condition Evaluation Date 05/22/21 Treatment Diagnosis alcoholic hepatitis; difficulty in walking Onset Date 05/17/21 M3 PT-IP Subjective Start: 05/22/21 13:46 Freq: NEEDED Status: Active Protocol: Document 05/22/21 11:40 AB (Rec: 05/22/21 14:00 AB [email or web address]) Subjective Physical Therapy Visit Type Type Initial Evaluation Visit Start Time 11:40 Visit Stop Time 12:40 Total Visit Minutes 60 Number of UMBRELLA FINISHER Visits 0 Physical Therapy Visit Comments Patient Comments agreeable to do PT Therapy Pain Assessment Pain Present Pain Present Denied Pain M4 PT-IP Mobility and Gait Start: 05/22/21 13:46 Freq: NEEDED Status: Active Protocol: Document 05/22/21 11:40 AB (Rec: 05/22/21 14:00 AB [id number]) PT-Bed Mobility Assessment Supine to Sit Supine to Sit Standby Assistance,Minimal Assistance Sit to Supine Sit to Supine Standby Assistance PT-Transfer Assessment Sit to and From Stand Sit to and from Stand Standby Assistance,1 Person Assistance,Use of Upper Extremities Equipment Transfer Assistive Device None,Gait Belt,Front Wheeled Walker Orthotic/Prosthetic Devices or Brace: No Transfers Transfer Destination Bed,Chair Transfer Technique ambualted Transfer Ability Level of Assist Minimal Assistance,1 Person Assistance,Use of Upper Extremities Comments Mobility Comments pt sitting on chair and agreeable to do PT. completed sit to stand from chair SBA and ambulated in room without AD CGA to min A and cues. presents with unsteady antalgic giat with decrease step lenght pt tends to reach for the wall for support. pt ambulated to EOB. completed sit to supine SBA. attempted supine to sit min A and x 2 attempts. educated pt on bed mobility technique. completed supine to sit again log roll and completed SBA and cues. pt educated on safety and agreed to ambulate using FWW. ambulated in room using FWW SBA and cues and sat on chair to rest. pt ambulated out in the hallway using FWW ~ 300 ft SBA . presents with decrease step length and width and LLE tends to interally rotate. pt stated that she is pigeoned toed on LLE. completed up/ down steps using B rails SBA. pt assisted back to her room. ambulated from w/c to chair SBA using FWW. positioned on chair. call light and table placed within reach. pt agreed to use FWW for ambulation at this time. informed pt regarding options for getting FWW and wants one dispensed from the hospital. requested FWW order and processed. pt signed papers for FWW. informed nurse. Gait Assessment Gait Gait Assistance Required: Standby Assistance,Contact Guard Assist,Minimum Assistance,1 Person Assist Distance (Feet) 300 Able to Maintain Weight Bearing Status Yes During Gait Assistive Devices Assistive Device None,Gait Belt,Front Wheeled Walker Orthotic/Prosthetic Devices or Brace: No Gait Deviations General Gait Pattern Antalgic,Decreased Stride Length,Decreased Feet Clearance Factors Limiting Gait Function Factors Limiting Gait Function Decreased Activity Tolerance, Decreased Strength,Poor Balance,Poor Safety Awareness Stair Climbing Assessment Evaluation Level of Assist On Stairs Standby Assistance Devices Stair Climbing Assistive Devices Left Railing,Right Railing Technique/Endurance Stair Climbing Direction Ascend and Descend Stair Climbing Technique Step Over Step Number of Steps Climbed 3 Query Text: Stair Climbing Set # Repetitions (reps) 1 PT-Balance Assessment Sitting Balance and Reactions Static Sitting Balance Ability Normal Dynamic Sitting Balance Ability Good Standing Balance and Reactions Static Standing Balance Ability Fair Dynamic Standing Balance Ability Fair Device Used without AD M5 PT-IP Objective Assessments Start: 05/22/21 13:46 Freq: NEEDED Status: Active Protocol: Document 05/22/21 11:40 AB (Rec: 05/22/21 14:00 AB [id number]) Orientation Orientation/Cognition Level of Alertness Alert Orientation Name,Place,Situation Language Function Ability No Deficits Noted Safety Awareness Decreased Safety Awareness Memory Description No Deficits Noted Gross Range of Motion Lower Extremity ROM Assessment Within Functional Limits Strength Lower Extremity Strength Hip 4-/5 Knee 4+/5 Muscle Tone Muscle Tone WNL Yes Other Assessments Other Other Assessments BLE edema M6 PT-IP Treatment Start: 05/22/21 13:46 Freq: NEEDED Status: Active Protocol: Document 05/22/21 11:40 AB (Rec: 05/22/21 14:00 AB [email or web address]) Physical Therapy Treatment Education Education Provided Safety Equipment Issued Equipment Type and Company FWW: from [employer]: papers signed by pt M7 PT-IP Assessment and Plan Start: 05/22/21 13:46 Freq: NEEDED Status: Active Protocol: Document 05/22/21 11:40 AB (Rec: 05/22/21 14:00 AB [email or web address]) PT Summary Assessment and Plan Potential Rehabilitation Potential Good Status of Condition at Evaluation Stable Summary Impairments Pain,ROM,Strength,Balance, Coordination,Sensation,Tone, Cognition,Bed Mobility, Transfers,Gait,Activity Tolerance Assessment Summary pt requiring SBA with mobility using FWW. recommending use of fWW at this time due to unsteadiness without AD. pt agreed. pt plans to go home and stated that spouse will be able to assist as needed. pt will benefit from HHPT. Goals Bed Mobility Goal Independent Transfer Goal Independent,Front Wheeled Walker Gait Goal Independent,Front Wheel Walker Gait Distance 350 Other Goals increase ambulation without AD SBA 200 ft up/down 2 steps B rails mod I Days to Meet Goals 5 Frequency of Treatment Frequency Of Treatment Once a Day Treatment Plan Physical Therapy Treatment Plan Bed Mobility Training,Transfer Training,Gait Training, Therapeutic Exercise,Balance Retraining,Discharge Planning, Hot or Cold Pack,Neuromuscular Re-ed,Coordination Retraining Recommendations To Nursing Amount of Assist Needed Standby Assistance Discharge Recommendations PT Discharge Recommendations Home with Assistance,Home Health Equipment Needed for Home Before FWW Discharge Transportation Needs at Discharge Private Vehicle
--- NOTE | 2021-05-22 12:27 | CM.DPC ---
DCP Cont: Patient will be discharged home today. She is currently oriented x3. P.T. has seen patient and and is recommending that patient go home with a walker. Went ahead and placed the order under home health for a FWW. Also, MS KristiW, will check in with patient before she leaves to see if there are any resources that she may be interested in regarding her history of alcohol use. P: Patient is discharging home today with FWW, and CORPORATE SAFETY COORDINATOR will check in with patient before she leaves. Elizabeth Weeks RN/Canal Structure Operator
--- NOTE | 2021-05-22 14:03 | CM.DANOTE ---
Discharge ordered received. Placed consult for PT eval and treat to ensure pt safety at home. Per PT, okay to discharge pt with walker. IV removed, discharge instructions given, substance abuse community resources from RIVETING MACHINE OPERATOR TAPE CONTROL given to patient at time of discharge. Out via wheelchair to private vehicle with spouse. All personal belongings sent with patient.
--- NOTE | 2021-05-22 14:05 | PC.NURSE ---
Discharge ordered received. Placed consult for PT eval and treat to ensure pt safety at home. Per PT, okay to discharge pt with walker. IV removed, discharge instructions given, substance abuse community resources from DUMP TRUCK OPERATOR given to patient at time of discharge. Out via wheelchair to private vehicle with spouse. All personal belongings sent with patient.
--- NOTE | 2021-05-22 14:07 | PC.NURSE ---
Wound care and education performed at 1300. Wound to right lower leg gently cleaned/debrided with sterile 4x4 and sterile saline. Slough removed, pink wound bed. Honey dressing applied with secondary of Eduardo. Wound care education, including cleansing and leg compression, provided to patient and spouse. Also discussed venous insufficiency and possible outpatient resources of vascular surgeon and/or wound care.
--- NOTE | 2021-05-22 14:23 | PM.DS.1 ---
History of Present Illness History of Present Illness Date Patient Seen: 05/22/21 Time Patient Seen: 09:00 Chief complaint: ABD PAIN Narrative: Per Iraida Quinones, LOG DECK TENDER-BC: Charmaine Watt is a 60-year-old female with no reported past medical history or medications who presents to the ED with 2 days of diffuse abdominal pain, that woke her up in the middle of the night, nausea, and new onset abdominal distention.? Patient reports that she has been gagging but no vomiting, the abdominal pain and pressure is diffuse across her abdomen is a 2/3 at the time of admit due to pain medication in the ED, the pain is constant it worsens with any sort of movement, or coughing.? Patient reports the pain is sharp to throbbing without radiation.? Patient endorses a subjective fever, chills.? Patient denies chest pain, shortness of breath, vomiting, dysuria, hematochezia, melena, hematuria, lightheadedness, syncope, dizziness. Patient endorsed moderate to heavy daily alcohol use? (Vodka) for several years to the ED provider.? Patient also reports an increased intake of NSAIDs, decreased appetite decreased taste, no exposure to viruses, herpes zoster, hepatitis, and has not eaten at a restaurant in the past 2 weeks.? She does note that she was on vacation last week and may of had a larger intake of alcohol than normal. Denies having been diagnosed with cirrhosis, states she has not been to a doctor in a long time.? Denies history of gallstones.? Patient reports that she has never smoked cigarettes but has smoked THC times 40 years. Patient is resting comfortably in the ED bed at this time in no distress upon admit, patient is febrile with a temp of 101?, BP 106/55 (slightly hypotensive previous recording shows systolic of 137, HR 90, R 16, O2 saturation 92% on 2 L nasal cannula.? Patient is not on O2 at home.? Patient has an elevated WBC 17.1, neutrophils 14,000, HCT 35.9, MCV 117.1.? Sodium 132, chloride 95, total bili 11, AST 240, alk-phos 248, initial lactate 4.2, lipase 14, procalcitonin 5.91, urinalysis: urine bili positive high, wbc's 5-10, bacteria many. ABD/Pelvis CT showed Diffuse hepatic hypoattenuation with heterogeneous mottled attenuation of the liver.? Findings are suggestive of moderate to severe hepatic steatosis with steatohepatitis or another diffuse infectious or inflammatory hepatocellular process. Splenomegaly, small volume pleural effusions and small volume ascites presumably related. ABD MRI: No findings of choledocholithiasis or biliary ductal dilatation. Tiny gallstone with no findings of cholecystitis. Severe hepatic steatosis with suspected diffuse hepatocellular disease.? Cirrhosis is not excluded.? There is splenomegaly along with perihepatic and perisplenic ascites, along with small pleural effusions. ABD U/S: Dense echogenic liver either reflects advanced hepatic fatty infiltration of cirrhosis. Gallbladder wall thickening, pericholecystic fluid without cholelithiasis.? Patient admitted for acute respiratory failure with hypoxia, with sepsis, hepatic injury, and abdominal pain. ? Discharge Providers Provider Date of admission: 05/17/21 21:05 Discharge Date: 05/22/21 Primary care physician: Sadia Muse MD Consults: 05/22/21 10:34 Consult to Physical Therapy Evaluate & Treat Comment: Physician Instructions: Evaluate and Treat 05/22/21 12:26 Consult to Home Health Routine Comment: Reason For Exam: FWW for Home Use Discharge provider: Erick Best DO Summary Hospital Course Discharge Diagnosis: 1. Alcoholic hepatitis 2. Acute alcohol withdrawal with delirium tremens Hospital Course: This is a 60-year-old female with a past medical history of alcohol use who was admitted with acute alcoholic hepatitis. She had at heavy drinking history, with AST and ALT elevations in a two-to-one fashion, and a markedly elevated bilirubin. Maddrey discriminant function score was 87 on admission, improved to 37 on day of discharge. Patient was started on prednisolone therapy. Initial bilirubin of 10 did show improvement to 7. Patient also was confused for a brief period of time which improved over the course of her hospitalization. An ammonia level was checked and was unremarkable. The source of her confusion is thought to be from alcohol withdrawal and delirium tremens. She was treated with Librium and Ativan via [facility] protocol. The patient did not wish for alcoholic resources. On the day of discharge she was alert and oriented x3 and improving. She was able to tolerate a diet and did well with physical therapy evaluation though she did need a supportive device. She will continue on oral prednisolone for treatment of alcoholic hepatitis. I recommend initial 28 days of treatment followed by a prednisolone taper give above response to prednisolone. She should ideally be referred to a hospital chief executive officer. She was strongly advised to never drink alcohol again given her alcoholic hepatitis with elevated discriminant function score. Time Spent with Patient Time spent: Greater than 30 minutes Exam Vital Signs (past 8 hours): - 05/22/21 07:51 05/22/21 07:52 05/22/21 08:00 Temperature 97.6 F Pulse Rate 65 Pulse Rate [Orthostatic Lying] 65 Pulse Rate [Orthostatic Sitting] 68 Pulse Rate [Orthostatic Standing] 69 Respiratory Rate 17 Blood Pressure 118/67 Blood Pressure [Orthostatic Lying] 118/67 Blood Pressure [Orthostatic Sitting] 115/63 Blood Pressure [Orthostatic Standing] 115/64 Pulse Oximetry 93 93 95 05/22/21 12:00 Temperature 97.4 F L Pulse Rate 67 Pulse Rate [Orthostatic Lying] Pulse Rate [Orthostatic Sitting] Pulse Rate [Orthostatic Standing] Respiratory Rate 18 Blood Pressure 111/59 L Blood Pressure [Orthostatic Lying] Blood Pressure [Orthostatic Sitting] Blood Pressure [Orthostatic Standing] Pulse Oximetry 95 Oxygen Delivery Method Room Air Oxygen Flow Rate 0 Narrative Exam Narrative: GENERAL APPEARANCE: Well developed but somewhat chronically appearing female appears older than stated age but in no acute distress.? Falls asleep easily. SKIN: Inspection of the skin reveals no rashes, ulcerations or petechiae. She is jaundiced. HEENT:? Normocephalic atraumatic, extraocular muscles are intact, oropharynx is clear and mucous membranes are moist, neck is supple without adenopathy. Scleral icterus present. NECK: Supple and symmetric. There was no thyroid enlargement, and no tenderness, or masses were felt. CHEST: Normal AP diameter and normal contour without any kyphoscoliosis. LUNGS: Auscultation of the lungs revealed no wheezes, rhonchi, or rales. CARDIOVASCULAR: There was a regular rate and rhythm without any murmurs, gallops, rubs. Peripheral pulses were 2+ and symmetric. ABDOMEN: Soft, nontender and non-distended. Normal bowel sounds. MUSCULOSKELETAL: There was no tenderness or effusions noted. Muscle strength and tone were normal. EXTREMITIES: No cyanosis, clubbing. There is 1+ edema bilateral lower extremities with some chronic venous stasis changes. NEUROLOGIC: Alert and oriented x3. somnolent but no focal neurological deficits. Objective Labs Result Diagrams: 05/22/21 04:46 05/22/21 04:46 Labs: Laboratory Results - last 24 hr 05/18/21 05/22/21 05/22/21 04:45 04:46 04:46 WBC 11.1 H RBC 2.83 L Hgb 11.5 L Hct 33.0 L MCV 116.5 H MCH 40.6 H MCHC 34.8 RDW 14.9 H Plt Count 197 Neut % (Auto) 84.3 H Lymph % (Auto) 8.4 L [place] % (Auto) 6.9 Eos % (Auto) 0.1 L Baso % (Auto) 0.3 Neut # (Auto) 9400 H Lymph # (Auto) 900 L [place] # (Auto) 800 Eos # (Auto) 0 Baso # (Auto) 0 RBC Morphology See below Macrocytosis 3+ H Sodium 135 L Potassium 4.1 Chloride 103 Carbon Dioxide 28 BUN 19 H Creatinine 0.56 Estimated GFR > 60.0 BUN/Creatinine Ratio 33.9 H Glucose 117 H Calcium 8.2 L Magnesium Total Bilirubin 7.3 H AST 321 H ALT 54 H Alkaline Phosphatase 277 H Total Protein 6.6 Albumin 3.0 L Globulin 3.6 Albumin/Globulin Ratio 0.8 L CSF Herpes I DNA (PCR) Negative CSF Herpes II DNA (PCR) Negative 05/22/21 04:46 WBC RBC Hgb Hct MCV MCH MCHC RDW Plt Count Neut % (Auto) Lymph % (Auto) [place] % (Auto) Eos % (Auto) Baso % (Auto) Neut # (Auto) Lymph # (Auto) [place] # (Auto) Eos # (Auto) Baso # (Auto) RBC Morphology Macrocytosis Sodium Potassium Chloride Carbon Dioxide BUN Creatinine Estimated GFR BUN/Creatinine Ratio Glucose Calcium Magnesium 2.3 Total Bilirubin AST ALT Alkaline Phosphatase Total Protein Albumin Globulin Albumin/Globulin Ratio CSF Herpes I DNA (PCR) CSF Herpes II DNA (PCR) [facility] Medical History Alcohol abuse 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 You should follow up with your PCP as soon as possible. You were started on steroids given some improvement which will need to continue for 28 days, followed by a taper. Discharge orders & Medications Prescriptions: New prednisolone sodium phosphate 15 mg/5 mL (5 mL) solution 40 mg PO DAILY 28 Days Qty: 380 RF: 0 Follow up/Referrals: Sadia Muse MD [Primary Care Provider] - Diet/Activity/Treatments Diet: Diet as Tolerated Activity: As tolerated Discharge Data Primary Care Provider: Sadia Muse Quality VTE Deep Vein Thrombosis/Pulmonary Embolism Present on Admission: No
--- NOTE | 2021-05-22 14:53 | CM.SWNOTE ---
DERRICK FOLLOWER Note Met w/patient and spouse Khoa, introduced self and asked if patient was planning on remaining sober upon DC? Patient states yes. Asked if patient was interested in outpatient resources for addiction/recovery ? Patient states I think I'm okay Spouse Khoa states he supports patient 100% to remain sober and has removed all alcohol from their home. Spouse suggests patient leave with a few numbers. This DERRICK FOLLOWER provided packet of outpatient and inpatient ETOH addiction/sobriety resources. Also encouraged patient to consider psychiatry and/or counseling options. AYLEEN Tina
== END 2021-05-22 14:00 | disposition home or self-care (01) | DRG 433 ==
LOC: ED 16:14 → AC 21:06 → ICU 05-20 07:02 → AC 05-21 14:53
PROVIDERS: Emergency Medicine; Internal Medicine; Admitting Provider Nurse Practitioner Family; Emergency Provider Student in an Organized Health Care Education/Training Program; PCP Internal Medicine; Referring Provider Student in an Organized Health Care Education/Training Program; Visit Provider Nurse Practitioner Family
DX: K70.10 Alcoholic hepatitis without ascites (principal); F10.231 Alcohol dependence with withdrawal delirium; N30.00 Acute cystitis without hematuria; F12.10 Cannabis abuse, uncomplicated; Y90.0 Blood alcohol level of less than 20 mg/100 ml; Z20.822 Contact with and (suspected) exposure to COVID-19; R10.9 Unspecified abdominal pain
CPT/HCPCS: 36415; 36592; 74177; 74181; 76705; 78227; 80053; 80074; 80320; 80329; 81003; 81015; 82140; 82150; 82977; 83605; 83690; 83735; 84100; 84145; 85007; 85025; 85610; 85730; 87040; 87077; 87086; 87186; 87529; 87635; 93005; 94760; 96361; 96365; 96375; 96376; 97116; 97161; 97530; 99284; 99285; 99406; A9537; C9803; G0480; J0690; J1170; J1650; J2060; J2270; J2405; J2543; J2805; J2920; J3475; Q9967

== ENCOUNTER → 2021-06-03 11:26 | Outpatient (CLI) | payer OTHER, SELFPAY ==
[2021-05-18 05:53] VITALS: BMI 27.2
[2021-06-03 12:41] LABS: INR 1.3 (0.9-1.3)
[2021-06-03 12:44] LABS: PTT Partial Thromboplastin Tim 40 SECONDS (26.4-36.2)
[2021-06-03 12:47] LABS: Alanine Aminotransferase 103 IU/L (<35); Albumin 3.2 g/dL (3.5-5.0); Albumin Globulin Ratio 0.9 (1.0-2.8); Alkaline Phosphatase 207 U/L (38-126); Aspartate Aminotransferase 285 IU/L (14-36); BUN Creatinine Ratio 15.2 (6-22); Bilirubin Conjugated 0.9 md/dL (0.0-0.3); Bilirubin Total 6.6 mg/dL (0.2-1.3); Bilirubin Unconjugated 3.3 mg/dL (0.0-1.1); Blood Urea Nitrogen 7 mg/dL (7-17); Calcium 8.7 mg/dL (8.4-10.2); Carbon Dioxide 34 mmol/L (22-32); Chloride 100 mmol/L (98-107); Estimated Glomerular Filt Rate > 60.0 mL/min (>60); Globulin 3.6 g/dL (1.7-4.1); Glucose 97 mg/dL (80-110); HEMOLYSIS < 15 (0-50); Potassium 3.3 mmol/L (3.4-5.1); Sodium 135 mmol/L (137-145); Total Protein 6.8 g/dL (6.3-8.2)
[2021-06-03 12:57] LABS: Add Manual Diff / Slide Review NO; Basophils Absolute Auto 200 /uL (0-100); Basophils Percent Auto 1.3 % (0-2); Eosinophils Absolute Auto 100 /uL (0-450); Eosinophils Percent Auto 1.1 % (2-4); Hematocrit 35.8 % (36-46); Hemoglobin 12.1 g/dL (12.0-16.0); Lymphocytes Absolute Auto 1700 /uL (1100-4500); Mean Corpuscular HGB Conc 33.8 % (30-36); Mean Corpuscular Hemoglobin 39.7 PG (26-34); Mean Corpuscular Volume 117.3 fL (80-100); Monocytes Absolute Auto 700 /uL (0-900); Monocytes Percent Auto 6.1 % (3-14); Neutrophils Absolute Auto 9300 /uL (1500-7000); Neutrophils Percent Auto 77.5 % (50-75); Platelet Count 264 X10^3/uL (150-400); Red Blood Cell Count 3.06 X10^6/uL (4.0-5.2); Red Cell Distribution Width 14.3 % (11.6-14.8)
[2021-06-03 14:07] LABS: Macrocytosis 2+
== END ==
PROVIDERS: PCP Internal Medicine; Referring Provider Naturopath; Visit Provider Naturopath
DX: K76.9 Liver disease, unspecified (principal)
CPT/HCPCS: 36415; 80048; 80076; 85025; 85610; 85730

== ENCOUNTER → 2021-06-22 14:58 | Outpatient (CLI) | payer OTHER, SELFPAY ==
[2021-05-18 05:53] VITALS: BMI 27.2
== END ==
PROVIDERS: PCP Naturopath; Referring Provider Naturopath; Visit Provider Family Medicine
DX: I87.2 Venous insufficiency (chronic) (peripheral) (principal); L97.821 Non-pressure chronic ulcer of other part of left lower leg limited to breakdown of skin; L08.9 Local infection of the skin and subcutaneous tissue, unspecified; K70.10 Alcoholic hepatitis without ascites; R60.0 Localized edema
CPT/HCPCS: 87070; 87075; 87077; 87147; 87186; 87205; 97597; 99204; 99213

== ENCOUNTER → 2021-06-30 11:05 | Outpatient (CLI) | payer OTHER, SELFPAY ==
[2021-05-18 05:53] VITALS: BMI 27.2
== END ==
PROVIDERS: PCP Naturopath; Referring Provider Naturopath; Visit Provider Family Medicine
DX: I87.2 Venous insufficiency (chronic) (peripheral) (principal); K70.10 Alcoholic hepatitis without ascites; R60.0 Localized edema; B95.7 Other staphylococcus as the cause of diseases classified elsewhere
CPT/HCPCS: 99213

== ENCOUNTER → 2021-07-12 16:04 | Outpatient (CLI) | payer OTHER, SELFPAY ==
[2021-05-18 05:53] VITALS: BMI 27.2
[2021-07-12 17:44] LABS: Alanine Aminotransferase 32 IU/L (<35); Albumin 4.2 g/dL (3.5-5.0); Albumin Globulin Ratio 1.1 (1.0-2.8); Alkaline Phosphatase 127 U/L (38-126); Aspartate Aminotransferase 82 IU/L (14-36); BUN Creatinine Ratio 14.5 (6-22); Bilirubin Total 3.1 mg/dL (0.2-1.3); Blood Urea Nitrogen 12 mg/dL (7-17); Calcium 10.1 mg/dL (8.4-10.2); Carbon Dioxide 32 mmol/L (22-32); Chloride 94 mmol/L (98-107); Estimated Glomerular Filt Rate > 60.0 mL/min (>60); Globulin 3.9 g/dL (1.7-4.1); Glucose 89 mg/dL (80-110); HEMOLYSIS < 15 (0-50); Potassium 4.3 mmol/L (3.4-5.1); Sodium 134 mmol/L (137-145); Total Protein 8.1 g/dL (6.3-8.2)
== END ==
PROVIDERS: PCP Naturopath; Referring Provider Internal Medicine Gastroenterology; Visit Provider Internal Medicine Gastroenterology
DX: K70.10 Alcoholic hepatitis without ascites (principal)
CPT/HCPCS: 36415; 80053

== ENCOUNTER → 2022-01-03 09:49 | Outpatient (CLI) | payer OTHER, SELFPAY ==
[2021-05-18 05:53] VITALS: BMI 27.2
--- NOTE | 2022-01-03 | DI.MG.S_ITS ---
BILATERAL DIGITAL SCREENING MAMMOGRAM 3D/2D WITH CAD: 01/03/2022 CLINICAL: Routine screening. Baseline by default. No prior exams were available for comparison. The tissue of both breasts is heterogeneously dense. This may lower the sensitivity of mammography. Current study was also evaluated with a Computer Aided Detection (CAD) system. No significant masses, calcifications, or other findings are seen in either breast. IMPRESSION: NEGATIVE There is no mammographic evidence of malignancy. A 1 year screening mammogram is recommended. This exam was interpreted at Station ID: [id number]. NOTE: For mammograms, a report in lay terms will be sent to the patient. Approximately 15% of breast malignancies will not be visualized mammographically. In the management of a palpable breast mass, a negative mammogram must not discourage biopsy of a clinically suspicious lesion. Electronically Signed By: Magaly [email or web address]/[email or web address]:01/03/2022 13:47:01 letter sent: Normal Exam ACR BI-RADS Category 1: Negative [id number]
== END ==
PROVIDERS: PCP Naturopath; Referring Provider Internal Medicine; Visit Provider Internal Medicine
DX: Z12.31 Encounter for screening mammogram for malignant neoplasm of breast (principal)
CPT/HCPCS: 77063; 77067